=== PATIENT | male | born 1965 | race African-American/Black ===

== ENCOUNTER 2020-02-07 07:39 | Emergency (ER) | payer OTHER ==
[~2020-02-07] VITALS: Ht 167.7 cm; Wt 80.7 kg
[~2020-02-07 07:39] MED LIST: AMOX500C2 PO; HYDR-1231 PO; HYDR-3454 PO; ONDAN4ODT PO; PENI250T4 PO
[2020-02-07 08:30] LABS: BILIRUBIN,URINE NEGATIVE (NEGATIVE); CLARITY,URINE CLEAR; COLOR,URINE YELLOW; GLUCOSE, URINE (UA) NEGATIVE (NEGATIVE); KETONES,URINE NEGATIVE (NEGATIVE); LEUKOCYTE ESTERASE ,URINE TRACE (NEGATIVE); NITRITE,URINE NEGATIVE (NEGATIVE); PH,URINE 6.5 (5-9); PROTEIN,URINE NEGATIVE (NEGATIVE)
[2020-02-07 08:38] LABS: BACTERIA,URINE NEGATIVE /HPF; SQUAMOUS EPITHELIAL CELL,UR 0-2 /HPF; WBC,URINE 0-2 /HPF
[2020-02-07] MEDS ORDERED: ONDANSETRON 4 MG (ZOFRAN) ORAL DISSOLVE TAB SL ONE (08:45)
[2020-02-07] MEDS ORDERED: LIDOCAINE 2% VISCOUS 15 ML UDC PO ONE (08:45)
[2020-02-07] MEDS ORDERED: ANTACID SUSP 30 ML UDC (MYLANTA) PO ONE (08:45)
[2020-02-07] MEDS ORDERED: FAMOTIDINE 20MG/2ML IV (PEPCID) IVP ONE (10:30)
[2020-02-07 10:49] LABS: BASOPHILS # (AUTO) 0.1 10^3/uL (0.0-0.1); BASOPHILS % (AUTO) 1 % (0-10); EOSINOPHILS # (AUTO) 0.3 10^3/uL (0.0-0.3); EOSINOPHILS % (AUTO) 2 % (0-10); HEMATOCRIT 46 % (40-54); HEMOGLOBIN 15.8 G/DL (13.3-17.7); LYMPHOCYTES # (AUTO) 3.9 X 10^3 (1.0-4.0); LYMPHOCYTES % (AUTO) 29 % (12-44); MEAN CORPUSCULAR HEMOGLOBIN 28 PG (25-34); MEAN CORPUSCULAR HGB CONC 34 G/DL (32-36); MEAN CORPUSCULAR VOLUME 83 FL (80-99); MEAN PLATELET VOLUME 9.7 FL (7.4-10.4); MONOCYTES # (AUTO) 1.2 X 10^3 (0.0-1.0); MONOCYTES % (AUTO) 9 % (0-12); NEUTROPHILS % (AUTO) 60 % (42-75); PLATELET COUNT 295 10^3/uL (130-400); RED CELL DISTRIBUTION WIDTH 15.6 % (10.0-14.5); WHITE BLOOD COUNT 13.5 10^3/uL (4.3-11.0)
[2020-02-07 11:05] LABS: ALBUMIN 3.9 GM/DL (3.2-4.5); CHLORIDE 106 MMOL/L (98-107); POTASSIUM 4.5 MMOL/L (3.6-5.0); SODIUM 138 MMOL/L (135-145)
[2020-02-07 11:06] LABS: CALCIUM 8.9 MG/DL (8.5-10.1)
[2020-02-07 11:07] LABS: GLUCOSE 103 MG/DL (70-105)
[2020-02-07 11:08] LABS: TOTAL PROTEIN 8.3 GM/DL (6.4-8.2)
[2020-02-07 11:09] LABS: BILIRUBIN,TOTAL 0.4 MG/DL (0.1-1.0); CARBON DIOXIDE 22 MMOL/L (21-32)
[2020-02-07 11:11] LABS: ALKALINE PHOSPHATASE 97 U/L (40-136); CREATININE SERUM 0.84 MG/DL (0.60-1.30); GFR ESTIMATED > 60
[2020-02-07 11:12] LABS: BUN/CREATININE RATIO 15
[2020-02-07 11:14] LABS: ALANINE AMINOTRANSFERASE 18 U/L (0-55); LIPASE 34 U/L (8-78)
--- NOTE | 2020-02-07 12:25 | Diagnostic Imaging Report ---
PROCEDURE: US Gallbladder. TECHNIQUE: Multiple real-time grayscale images were obtained over the right upper quadrant in various projections. INDICATION: Abdominal pain. FINDINGS: The liver parenchyma is homogeneous. No masses. Long axis of 15 cm. The bile ducts are not dilated. The common duct is 3 mm. Gallbladder is nondistended. No gallstones or wall thickening. No pericholecystic fluid. Pancreas is obscured by midline bowel gas. Aorta and vena cava appear normal. The Doppler sampling shows normal flow in the portal vein. The right kidney measures 10.8 x 4 x 5 cm and appears normal. There is no ascites. IMPRESSION: Normal right upper quadrant ultrasound. The pancreas was not well evaluated. Dictated by: Dictated on workstation # [id number]
--- NOTE | 2020-02-07 12:50 | ED Abdominal Pain ---
General Chief Complaint: Abdominal/GI Problems Stated Complaint: ABD PAIN Nursing Triage Note: PT AMB TO RM 8 WITH COMPLAINT OF UPPER ABD PAIN FOR 2-3 MONTHS. STATES PAIN WORSENED OVER THE LAST 2-3 DAYS. Sepsis Screen: No Definite Risk Source of Information: Patient Exam Limitations: No Limitations History of Present Illness Date Seen by Provider: February 07, 2020 Time Seen by Provider: 08:09 Initial Comments This 54-year-old gentleman presents to the emergency room with complaints of epigastric pain for the past 2-3 months intensifying more severely over the last couple days. He sometimes has pain very quickly after eating. Pepcid does briefly help. He denies vomiting, diarrhea, or fever. He rarely drinks alcohol but does smoke. He has never had EGD. He does not have a primary care provid er. Allergies and Home Medications Allergies Coded Allergies: No Known Drug Allergies (Unverified , 08/28/12) Home Medications Amoxicillin 500 Mg Capsule, 1 EACH PO TID Prescribed by: JODY MILLS on 08/22/142043 Hydrocodone Bit/Acetaminophen 1 Tab Tablet, 1 TAB PO Q6H PRN for PAIN Prescribed by: JODY MILLS on 08/22/142043 Patient Home Medication List Home Medication List Reviewed: Yes Review of Systems Review of Systems Constitutional: no symptoms reported EENTM: No Symptoms Reported Respiratory: No Symptoms Reported Cardiovascular: No Symptoms Reported Gastrointestinal: See HPI Genitourinary: No Symptoms Reported Musculoskeletal: no symptoms reported Skin: no symptoms reported Psychiatric/Neurological: No Symptoms Reported Endocrine: No Symptoms Reported Hematologic/Lymphatic: No Symptoms Reported Past Nwfsztt-Atmdho-Egmvbk Hx Past Med/Social Hx: Reviewed Nursing Past Med/Soc Hx Patient Social History Alcohol Use: Rarely Uses Recreational Drug Use: No Smoking Status: Current Everyday Smoker Type Used: Cigarettes Recent Foreign Travel: No Contact w/Someone Who Travel: No Recent Infectious Disease Expo: No Immunizations Up To Date Date of Pneumonia Vaccine: Jun 18, 2011 Date of Influenza Vaccine: Jun 14, 2014 Past Medical History Surgeries: Yes (SKIN GRAFT) Respiratory: No Cardiac: No Neurological: No Genitourinary: No Gastrointestinal: No Musculoskeletal: No Endocrine: No HEENT: No Cancer: No Psychosocial: No Integumentary: No Physical Exam Vital Signs Vital Signs - First Documented 02/07/20 08:20 Temp 36.7 Pulse 78 Resp 20 B/P (MAP) 149/90 (109) Pulse Ox 98 O2 Delivery Room Air Capillary Refill : Less Than 3 Seconds Height/Weight/BMI Height: 5'6" Weight: 185lbs. oz. 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, no motor/sensory deficits, alert, normal mood/affect, oriented x 3 Skin: normal color, warm/dry Progress/Results/Core Measures Results/Orders Lab Results Laboratory Tests Test 02/07/20 08:20 02/07/20 10:35 Range/Units Urine Color YELLOW Urine Clarity CLEAR Urine pH 6.5 5-9 Urine Specific [place] 1.025 H 1.016-1.022 Urine Protein NEGATIVE NEGATIVE Urine Glucose (UA) NEGATIVE NEGATIVE Urine Ketones NEGATIVE NEGATIVE Urine Nitrite NEGATIVE NEGATIVE Urine Bilirubin NEGATIVE NEGATIVE Urine Urobilinogen 1.0 < = 1.0 MG/DL Urine Leukocyte Esterase TRACE H NEGATIVE Urine RBC (Auto) NEGATIVE NEGATIVE Urine RBC NONE /HPF Urine WBC 0-2 /HPF Urine Squamous Epithelial Cells 0-2 /HPF Urine Crystals NONE /LPF Urine Bacteria NEGATIVE /HPF Urine Casts NONE /LPF Urine Mucus NEGATIVE /LPF Urine Culture Indicated NO White Blood Count 13.5 H 4.3-11.0 10^3/uL Red Blood Count 5.57 4.35-5.85 10^6/uL Hemoglobin 15.8 13.3-17.7 G/DL Hematocrit 46 40-54 % Mean Corpuscular Volume 83 80-99 FL Mean Corpuscular Hemoglobin 28 25-34 PG Mean Corpuscular Hemoglobin Concent 34 32-36 G/DL Red Cell Distribution Width 15.6 H 10.0-14.5 % Platelet Count 295 130-400 10^3/uL Mean Platelet Volume 9.7 7.4-10.4 FL Neutrophils (%) (Auto) 60 42-75 % Lymphocytes (%) (Auto) 29 12-44 % Monocytes (%) (Auto) 9 0-12 % Eosinophils (%) (Auto) 2 0-10 % Basophils (%) (Auto) 1 0-10 % Neutrophils # (Auto) 8.0 H 1.8-7.8 X 10^3 Lymphocytes # (Auto) 3.9 1.0-4.0 X 10^3 Monocytes # (Auto) 1.2 H 0.0-1.0 X 10^3 Eosinophils # (Auto) 0.3 0.0-0.3 10^3/uL Basophils # (Auto) 0.1 0.0-0.1 10^3/uL Sodium Level 138 135-145 MMOL/L Potassium Level 4.5 3.6-5.0 MMOL/L Chloride Level 106 98-107 MMOL/L Carbon Dioxide Level 22 21-32 MMOL/L Anion Gap 10 5-14 MMOL/L Blood Urea Nitrogen 13 7-18 MG/DL Creatinine 0.84 0.60-1.30 MG/DL Estimat Glomerular Filtration Rate > 60 BUN/Creatinine Ratio 15 Glucose Level 103 70-105 MG/DL Calcium Level 8.9 8.5-10.1 MG/DL Corrected Calcium 9.0 8.5-10.1 MG/DL Total Bilirubin 0.4 0.1-1.0 MG/DL Aspartate Amino Transf (AST/SGOT) 18 5-34 U/L Alanine Aminotransferase (ALT/SGPT) 18 0-55 U/L Alkaline Phosphatase 97 40-136 U/L C-Reactive Protein High Sensitivity 0.42 0.00-0.50 MG/DL Total Protein 8.3 H 6.4-8.2 GM/DL Albumin 3.9 3.2-4.5 GM/DL Lipase 34 8-78 U/L My Orders Orders - PARUL GARCIA MD Ua Culture If Indicated (02/07/20 08:09) Ondansetron Oral Dissolve Tab (Zofran (02/07/20 08:45) Lidocaine 2% Viscous 15 Ml (Xylocaine Vi (02/07/20 08:45) Antacid Suspension (Mylanta Suspension (02/07/20 08:45) Ed Iv/Invasive Line Start (02/07/20 10:22) Cbc With Automated Diff (02/07/20 10:22) Comprehensive Metabolic Panel (02/07/20 10:22) Hs C Reactive Protein (02/07/20 10:22) Lipase (02/07/20 10:22) Famotidine Injection (Pepcid Injection) (02/07/20 10:30) Us Gallbladder 14686 (02/07/20 10:30) Medications Given in ED Vital Signs/I&O 02/07/20 02/07/20 08:20 13:00 Temp 36.7 36.7 Pulse 78 76 Resp 20 17 B/P (MAP) 149/90 (109) 135/88 (109) Pulse Ox 98 98 O2 Delivery Room Air Room Air Blood Pressure Mean: 109 Progress Progress Note : Progress Note Patient was treated with Zofran and GI cocktail. This actually induce more pain. Further workup revealed minimal leukocytosis. Gallbladder ultrasound was obtained and was unremarkable. Patient was given IV Pepcid which did seem to help some. See discharge instructions. Diagnostic Imaging Diagonstic Imaging: Ultrasound Plain Films/CT/US/NM/MRI: abdomen Comments NAME: MIKE ASHRAF MED REC#: [id number] PT STATUS: DEP ER : 1965 PHYSICIAN: PARUL GARCIA MD ADMIT DATE: 02/07/20/ER Signed Date of Exam:02/07/20 US GALLBLADDER [id number] PROCEDURE: US Gallbladder. TECHNIQUE: Multiple real-time grayscale images were obtained over the right upper quadrant in various projections. INDICATION: Abdominal pain. FINDINGS: The liver parenchyma is homogeneous. No masses. Long axis of 15 cm. The bile ducts are not dilated. The common duct is 3 mm. Gallbladder is nondistended. No gallstones or wall thickening. No pericholecystic fluid. Pancreas is obscured by midline bowel gas. Aorta and vena cava appear normal. The Doppler sampling shows normal flow in the portal vein. The right kidney measures 10.8 x 4 x 5 cm and appears normal. There is no ascites. IMPRESSION: Normal right upper quadrant ultrasound. The pancreas was not well evaluated. Dictated by: Dictated on workstation # [id number] Dict: 02/07/20 1216 Trans: 02/07/20 1615 [facility] [id number] Interpreted by: JACQUI HOROWITZ MD Electronically signed by: JACQUI HOROWITZ MD 02/07/20 1615 Reviewed: Reviewed by Me Departure Impression Primary Impression: Epigastric pain Disposition: HOME, SELF-CARE Condition: Improved Departure-Patient Inst. Decision time for Depature: 12:47 Referrals: NO,LOCAL PHYSICIAN (PCP/Family) Primary Care Physician Patient Instructions: Acid Reflux and GERD in Adults (DC), Acute Abdomen (Belly Pain), Adult (DC) Add. Discharge Instructions: Take Pepcid (or generic famotidine) and Prilosec (or generic omeprazole) twice daily for the next month. Do not stop even if you're feeling better. Both of these medications are 20 mg twice daily. Establish with a primary care provider soon as possible. Avoid the following: Eating large meals, eating close to bedtime, caffeine, carbonation, chocolate, citrus fruits and juices, tomato products, spicy foods, mints, tobacco products including smoking, alcohol, NSAID medications such as ibuprofen or naproxen, fatty or greasy foods, or anything else you know irritates your stomach. Elevating the head of your bed at night may be helpful. Return to care if you have worsening symptoms despite following these measures. If you do not have significant improvement within 2 weeks, follow-up with a primary care provider to arrange endoscopy. All discharge instructions reviewed with patient and/or family. Voiced understanding. Work/School Note: Work Release Form Date Seen in the Emergency Department: February 07, 2020 Return to Work: February 08, 2020 Restrictions: No Restrictions PARUL GARCIA MD February 07, 2020 12:50
[2020-02-07 13:00] VITALS: BP 135/88
== END 2020-02-07 13:00 | disposition home or self-care (01) ==
LOC: EDUNIT# 07:39 → ER 07:41
DX: R10.13 Epigastric pain (principal); F17.210 Nicotine dependence, cigarettes, uncomplicated
CPT/HCPCS: 36415; 76705; 80053; 81000; 83690; 85025; 86141; 96374

== ENCOUNTER 2022-04-17 10:49 | Inpatient (IN) | payer SELFPAY ==
[~2022-04-17] VITALS: Ht 167.7 cm; Wt 77.0 kg
[2022-04-17] MEDS ORDERED: NS IV 1000 ML 1,000 ML IV STA (11:10)
--- NOTE | 2022-04-17 11:14 | ED General ---
General Chief Complaint: General Problems/Pain Stated Complaint: WEAKNESS,DOVER,ABD PAIN, N/V Nursing Triage Note: PT AMB TO RM 10 WITH C/O FEELING DEHYDRATED X2 DAYS, DOVER AND WEAKNESS. 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 Patient states he works in a building that is extremely hot. Patient states over the past 2 days he has not been drinking as much water. Started having some abdominal discomfort with episode of vomiting yesterday. Woke up this morning with headache with weakness and fatigue. Reports cramping in his legs. Reports some upper abdominal discomfort this morning but that has improved. Denies taking medication at home. Has been drinking Gatorade but this has not helped with any of his symptoms. Denies fever, sore throat, visual changes, ear pain, diarrhea, chest pain, cough or shortness of breath. No known cardiac history, history of COPD or asthma. (MARILU LEON) Allergies and Home Medications Allergies Coded Allergies: Penicillins (Verified Allergy, Unknown, 02/08/20) Patient Home Medication List Home Medication List Reviewed: Yes (MARILU LEON) Ibuprofen (Ibuprofen) 200 Mg Tablet, 400 MG PO Q6H PRN for PAIN-MILD (1-4), (Reported) Entered as Reported by: RICHY GREEN on 04/18/22 1021 Last Action: Reviewed Discontinued Medications Amoxicillin (Amoxicillin) 500 Mg Capsule, 1 EACH PO TID Discontinued Reason: No Longer Taking Prescribed by: JODY MILLS on 08/22/142043 Last Action: Discontinued Hydrocodone Bit/Acetaminophen (Hydrocodone-Apap 5-325 Tablet) 1 Tab Tablet, 1 TAB PO Q6H PRN for PAIN Discontinued Reason: No Longer Taking Prescribed by: JODY MILLS on 08/22/142043 Last Action: Discontinued Review of Systems Review of Systems Constitutional: No chills, No diaphoresis; malaise, weakness EENTM: No blurred vision, No double vision Respiratory: No cough, No dyspnea on exertion Cardiovascular: No chest pain, No edema Gastrointestinal: abdominal pain, nausea, vomiting Genitourinary: No decreased output, No discharge Musculoskeletal: No back pain, No joint pain; muscle stiffness, muscle cramps Psychiatric/Neurological: Headache (MARILU LEON) All Other Systems Reviewed Negative Unless Noted: Yes (MARILU LEON) Past Gtznhxv-Ruqeus-Fkpjdj Hx Patient Social History Tobacco Use?: Yes Tobacco type used: Cigarettes Use of E-Cig and/or Vaping dev: No Substance use?: No Alcohol Use?: No Pt feels they are or have been: No (MARILU LEON) Immunizations Up To Date Influenza Vaccine Up-to-Date: No; Not Current First/Initial COVID19 Vaccinat: 2020 COVID19 Vaccine Rivet Flunky: UNKNOWN (MARILU LEON) Past Medical History Surgery/Hospitalization HX: SKIN GRAFT TO R LEG Surgeries: Yes (SKIN GRAFT) Respiratory: No Cardiac: No Neurological: No Genitourinary: No Gastrointestinal: No Musculoskeletal: No Endocrine: No HEENT: No Cancer: No Psychosocial: No Integumentary: No (MARILU LEON) Physical Exam Vital Signs Vital Signs - First Documented 04/17/22 10:57 Temp 36.1 Pulse 106 Resp 18 B/P (MAP) 111/79 (90) (CLIFF KLEIN MD) Vital Signs Capillary Refill : (MARILU LEON) Height, Weight, BMI Height: 5'6" Weight: 185lbs. oz. 83.937594so; 28.00 BMI Method:Stated General Appearance: No Apparent Distress, WD/WN Eyes: Bilateral Eye Normal Inspection, Bilateral Eye PERRL, Bilateral Eye EOMI HEENT: PERRL/EOMI, TMs Normal, Normal ENT Inspection, Pharynx Normal Neck: Full Range of Motion, Normal Inspection, Non Tender, Supple Respiratory: Chest Non Tender, Lungs Clear, Normal Breath Sounds, No Accessory Muscle Use, No Respiratory Distress Cardiovascular: No Edema, No Gallop, No JVD, Tachycardia Gastrointestinal: Normal Bowel Sounds, No Organomegaly, No Pulsatile Mass, Non Tender, Soft Back: Normal Inspection, No CVA Tenderness, No Vertebral Tenderness Extremity: Normal Capillary Refill, Normal Inspection, Normal Range of Motion, Non Tender, No Calf Tenderness Neurologic/Psychiatric: Alert, Oriented x3, No Motor/Sensory Deficits, Normal Mood/Affect Skin: Normal Color, Warm/Dry (MARILU LEON) Progress/Results/Core Measures Suspected Sepsis SIRS Temperature: Pulse: 106 Respiratory Rate: 18 Laboratory Tests 04/17/22 11:05: White Blood Count 18.1H Blood Pressure 111 /79 Mean: 90 Laboratory Tests 04/17/22 11:05: Creatinine 3.64H, Platelet Count 332, Total Bilirubin 0.8 (MARILU LEON) Results/Orders Lab Results Laboratory Tests Test 04/17/22 11:02 04/17/22 11:05 04/17/22 11:21 Range/Units Influenza Type A (RT-PCR) Not Detected Not Detecte Influenza Type B (RT-PCR) Not Detected Not Detecte SARS-CoV-2 RNA (RT-PCR) Not Detected Not Detecte White Blood Count 18.1 H 4.3-11.0 10^3/uL Red Blood Count 6.05 H 4.30-5.52 10^6/uL Hemoglobin 16.8 13.3-17.7 g/dL Hematocrit 49 40-54 % Mean Corpuscular Volume 81 80-99 fL Mean Corpuscular Hemoglobin 28 25-34 pg Mean Corpuscular Hemoglobin Concent 34 32-36 g/dL Red Cell Distribution Width 15.9 H 10.0-14.5 % Platelet Count 332 130-400 10^3/uL Mean Platelet Volume 9.4 9.0-12.2 fL Immature Granulocyte % (Auto) 1 % Neutrophils (%) (Auto) 59 42-75 % Lymphocytes (%) (Auto) 30 12-44 % Monocytes (%) (Auto) 9 0-12 % Eosinophils (%) (Auto) 0 0-10 % Basophils (%) (Auto) 1 0-10 % Neutrophils # (Auto) 10.7 H 1.8-7.8 10^3/uL Lymphocytes # (Auto) 5.4 H 1.0-4.0 10^3/uL Monocytes # (Auto) 1.7 H 0.0-1.0 10^3/uL Eosinophils # (Auto) 0.1 0.0-0.3 10^3/uL Basophils # (Auto) 0.1 0.0-0.1 10^3/uL Immature Granulocyte # (Auto) 0.1 0.0-0.1 10^3/uL Neutrophils % (Manual) 61 % Lymphocytes % (Manual) 28 % Monocytes % (Manual) 8 % Eosinophils % (Manual) 1 % Metamyelocytes % 1 % Band Neutrophils 1 % Blood Morphology Comment NORMAL Sodium Level 138 135-145 MMOL/L Potassium Level 3.8 3.6-5.0 MMOL/L Chloride Level 102 98-107 MMOL/L Carbon Dioxide Level 21 21-32 MMOL/L Anion Gap 15 H 5-14 MMOL/L Blood Urea Nitrogen 40 H 7-18 MG/DL Creatinine 3.64 H 0.60-1.30 MG/DL Estimat Glomerular Filtration Rate 18 BUN/Creatinine Ratio 11 Glucose Level 120 H 70-105 MG/DL Calcium Level 10.3 H 8.5-10.1 MG/DL Corrected Calcium 8.5-10.1 MG/DL Magnesium Level 2.4 1.6-2.4 MG/DL Total Bilirubin 0.8 0.1-1.0 MG/DL Aspartate Amino Transf (AST/SGOT) 72 H 5-34 U/L Alanine Aminotransferase (ALT/SGPT) 24 0-55 U/L Alkaline Phosphatase 110 40-136 U/L Total Creatine Kinase 4038 H 30-200 U/L Troponin I 1.162 *H <0.028 NG/ML B-Type Natriuretic Peptide 33.0 <100.0 PG/ML Total Protein 9.8 H 6.4-8.2 GM/DL Albumin 4.6 H 3.2-4.5 GM/DL Lipase 20 8-78 U/L Urine Color DARK YELLOW Urine Clarity CLEAR Urine pH 5.0 5-9 Urine Specific [place] >=1.030 1.016-1.022 Urine Protein 1+ H NEGATIVE Urine Glucose (UA) NEGATIVE NEGATIVE Urine Ketones NEGATIVE NEGATIVE Urine Nitrite NEGATIVE NEGATIVE Urine Bilirubin 1+ H NEGATIVE Urine Urobilinogen 0.2 < = 1.0 MG/DL Urine Leukocyte Esterase TRACE H NEGATIVE Urine RBC (Auto) NEGATIVE NEGATIVE Urine RBC NONE /HPF Urine WBC 5-10 H /HPF Urine Squamous Epithelial Cells NONE /HPF Urine Crystals PRESENT H /LPF Urine Calcium Oxalate Crystals FEW H /LPF Urine Bacteria FEW H /HPF Urine Casts PRESENT /LPF Urine Hyaline Casts 5-10 H /LPF Urine Mucus NEGATIVE /LPF Urine Culture Indicated YES (CLIFF KLEIN MD) Micro Results Microbiology 04/17/22 Urine Culture - Final, Complete NO GROWTH (CLIFF KLEIN MD) Vital Signs/I&O 04/17/22 10:57 Temp 36.1 Pulse 106 Resp 18 B/P (MAP) 111/79 (90) (CLIFF KLEIN MD) Vital Signs/I&O Capillary Refill : (MARILU LEON) Blood Pressure Mean: 90 ECG Comment Sinus rhythm, left atrial enlargement, moderate T wave abnormality in the anterior lateral leads. 94 bpm, QRS duration 73 MS, QTc 372 MS (MARILU LEON) Departure Communication (Admissions) Time/Spoke to Admitting Phy: 12:31 Patient was discussed with Dr. Daley who accepts patient. Patient was discussed with Dr. Gardner to recommend bolus heparin and started on heparin drip. (MARILU LEON) Communication (PCP) Patient presents ED with weakness fatigue, leg cramping and some upper abdominal discomfort with headache. He states he has a history of acid reflux and this abdominal discomfort is improved with omeprazole. No current chest pain here. He was slightly tachycardic. Lab work showed elevated white blood count 18. Acute kidney injury with a creatinine of over 3. Rhabdo my lysis with CK of over 4000. Had an elevated troponin 1.162. Patient was started on a liter of fluid initially on arrival. Was given a second liter of fluid. Patient was given 324 of aspirin. No known history of coronary artery disease, CHF. Normal BNP. He is not have any chest pain, cough or shortness of breath. EKG did note some T wave abnormality in the anterior lateral leads. Discussed patient with Dr. Gardner who recommends heparin bolus and started on a heparin drip. Admitted to the ICU after discussing patient with Dr. Daley. No evidence suggesting infection at this time. Chest x-ray was negative for pneumonia. Urinalysis did note some leukocytes and white blood cells but not really strong evidence of UTI and he denies of any urinary symptoms. Antibiotics was held. Patient appears to have a NSTEMI which could be secondary to the rhabdo versus acute kidney injury. Further evaluation will be needed with cardiology. COVID influenza was negative (MARILU LEON) Impression Primary Impression: IRENA (acute kidney injury) Additional Impressions: NSTEMI (non-ST elevated myocardial infarction) Rhabdomyolysis Disposition: ADMITTED INPATIENT Condition: Unchanged Admissions Decision to Admit Reason: Admit from ER (General) Decision to Admit/Date: Apr 17, 2022 Time/Decision to Admit Time: 12:31 (MARILU LEON) Departure-Patient Inst. Referrals: NO,LOCAL PHYSICIAN (PCP/Family) Primary Care Physician PHYSICIAN ATTESTATION NOTE: I was present in the ER while REPORTS DEVELOPER / PA saw the patient, but I was not involved in the care, exam, or management of the patient. (CLIFF KLEIN MD) MARILU LEON Apr 17, 2022 11:14 CLIFF KLEIN MD Apr 19, 2022 07:19
[2022-04-17 11:16] LABS: BASOPHILS # (AUTO) 0.1 10^3/uL (0.0-0.1); BASOPHILS % (AUTO) 1 % (0-10); EOSINOPHILS # (AUTO) 0.1 10^3/uL (0.0-0.3); EOSINOPHILS % (AUTO) 0 % (0-10); HEMATOCRIT 49 % (40-54); HEMOGLOBIN 16.8 g/dL (13.3-17.7); LYMPHOCYTES # (AUTO) 5.4 10^3/uL (1.0-4.0); LYMPHOCYTES % (AUTO) 30 % (12-44); MEAN CORPUSCULAR HEMOGLOBIN 28 pg (25-34); MEAN CORPUSCULAR HGB CONC 34 g/dL (32-36); MEAN CORPUSCULAR VOLUME 81 fL (80-99); MEAN PLATELET VOLUME 9.4 fL (9.0-12.2); MONOCYTES # (AUTO) 1.7 10^3/uL (0.0-1.0); MONOCYTES % (AUTO) 9 % (0-12); NEUTROPHILS # (AUTO) 10.7 10^3/uL (1.8-7.8); NEUTROPHILS % (AUTO) 59 % (42-75); PLATELET COUNT 332 10^3/uL (130-400); WHITE BLOOD COUNT 18.1 10^3/uL (4.3-11.0)
[2022-04-17 11:25] LABS: ALBUMIN 4.6 GM/DL (3.2-4.5); CHLORIDE 102 MMOL/L (98-107); POTASSIUM 3.8 MMOL/L (3.6-5.0); SODIUM 138 MMOL/L (135-145)
[2022-04-17 11:27] LABS: CALCIUM 10.3 MG/DL (8.5-10.1)
[2022-04-17 11:28] LABS: GLUCOSE 120 MG/DL (70-105); TOTAL PROTEIN 9.8 GM/DL (6.4-8.2)
[2022-04-17 11:29] LABS: CARBON DIOXIDE 21 MMOL/L (21-32)
[2022-04-17 11:30] LABS: BILIRUBIN,TOTAL 0.8 MG/DL (0.1-1.0)
[2022-04-17 11:31] LABS: ALKALINE PHOSPHATASE 110 U/L (40-136); CREATININE SERUM 3.64 MG/DL (0.60-1.30); GFR ESTIMATED 18
[2022-04-17 11:32] LABS: BUN/CREATININE RATIO 11
[2022-04-17 11:34] LABS: ALANINE AMINOTRANSFERASE 24 U/L (0-55); MAGNESIUM 2.4 MG/DL (1.6-2.4)
[2022-04-17 11:35] LABS: LIPASE 20 U/L (8-78)
[2022-04-17 11:35] LABS: CLARITY,URINE CLEAR; COLOR,URINE DARK YELLOW; GLUCOSE, URINE (UA) NEGATIVE (NEGATIVE); KETONES,URINE NEGATIVE (NEGATIVE); LEUKOCYTE ESTERASE ,URINE TRACE (NEGATIVE); NITRITE,URINE NEGATIVE (NEGATIVE); PROTEIN,URINE 1+ (NEGATIVE)
[2022-04-17 11:36] LABS: CREATINE KINASE 4038 U/L (30-200)
[2022-04-17 12:06] LABS: BACTERIA,URINE FEW /HPF; BILIRUBIN,URINE 1+ (NEGATIVE); CALCIUM OXALATE CRYSTALS,UR FEW /LPF
[2022-04-17] MEDS ORDERED: NS IV 1000 ML 1,000 ML ONE (12:11)
[2022-04-17 12:13] LABS: BAND NEUTROPHILS 1 %; EOSINOPHILS % (MANUAL) 1 %; LYMPHOCYTES % (MANUAL) 28 %; METAMYELOCYTES % 1 %; MONOCYTES % (MANUAL) 8 %; NEUTROPHILS % (MANUAL) 61 %
[2022-04-17 12:14] LABS: RBC MORPH NORMAL
[2022-04-17] MEDS ORDERED: ASPIRIN 81 MG CHEW (CHILDREN'S ASA) PO ONE (12:15)
[2022-04-17] MEDS ORDERED: HEParin 1000 UNIT/ML (10ML VIAL) FOR BOLUS IV STA (12:24)
--- NOTE | 2022-04-17 12:34 | Diagnostic Imaging Report ---
INDICATION: Chest pain. TIME OF EXAM: 12:11 PM. COMPARISON: No prior studies are available for comparison. FINDINGS: The heart size is normal. The pulmonary vascularity is unremarkable. The lungs are clear. No infiltrate, effusion, or pneumothorax is detected. IMPRESSION: No acute cardiopulmonary process is detected. Dictated by: Dictated on workstation # [id number]
[2022-04-17 13:00] VITALS: BP 135/87
--- NOTE | 2022-04-17 13:24 | Tele-ICU Progress Note ---
Subjective Date Seen by a Provider: Apr 17, 2022 Time Seen by a Provider: 12:45 Subjective/Events-last exam This virtual visit was conducted using real time audio/video. Thank you for asking us to see this patient for Rhabdomyolisis, IRENA and NSTEMI. Recent events:Dehydrated, working in hot environment w poor PO intake PMH: GERD SH: smoking history: N FH: Non-contributory ROS: as in HPI. PE: VSS. HEENT: No obvious masses, adenopathy or JVD. Chest: clear to auscultation. CV: RRR S1 S2 No murmur or added sounds. Abd: Non-tender. Bowel sounds Y. : Unremarkable. Morin N. JAVA SPRING DEVELOPER/psychiatric: Grossly intact. No obvious focal findings. Extremities: edema. Capillary refill < 3 seconds. Skin: unremarkable. Results: Elevated BUN 40, Creat 3.64. BG 120, Ca 10.3, Trop 1.162, WCC 18.1. CXR: Clear. Available chart/ vitals / labs / images reviewed. Video assessment done using teleICU camera, rest of exam as per RN. A/P: Critical Care: critically ill patient. Cont. IVF, ASA, Heparin Discussed with RN Yissel. Asked RN to reach out to eICU if any questions or concerns later. Time spent with patient/coordination of care with other health professionals (mins): 35 Sepsis Event Evaluation Height, Weight, BMI Height: 5'6" Weight: 185lbs. oz. 83.769907xu; BMI Method:Stated Exam Exam Patient acknowledged, consented, and participated in this virtual visit which was conducted using real time audio/video Vital Signs Date Time Temp Pulse Resp B/P (MAP) Pulse Ox O2 Delivery O2 Flow Rate FiO2 04/17/22 13:00 36.1 85 18 135/87 04/17/22 10:57 36.1 106 18 111/79 (90) Height & Weight Height: 5'6" Weight: 185lbs. oz. 83.898342qp; BMI Method:Stated General Appearance: No Apparent Distress, WD/WN HEENT: PERRL/EOMI, TMs Normal, Normal ENT Inspection, Pharynx Normal Neck: Full Range of Motion, Normal Inspection, Non Tender, Supple Respiratory: Chest Non Tender, Lungs Clear, Normal Breath Sounds, No Accessory Muscle Use, No Respiratory Distress Cardiovascular: No Edema, No Gallop, No JVD, Tachycardia Extremity: Normal Capillary Refill, Normal Inspection, Normal Range of Motion, Non Tender, No Calf Tenderness Neurologic/Psychiatric: Alert, Oriented x3, No Motor/Sensory Deficits, Normal Mood/Affect Skin: Normal Color, Warm/Dry Results Lab Laboratory Tests 04/17/22 11:05 Assessment/Plan Assessment/Plan See free text Critical Care: Critically Ill Patient DARION VILLAFUERTE MD Apr 17, 2022 13:24
[2022-04-17] MEDS ORDERED: NS IV 500 ML 500 ML IV PRN (15:30)
[2022-04-17] MEDS ORDERED: MELATONIN 3 MG TABLET PO PRN (15:30)
[2022-04-17] MEDS ORDERED: CALCIUM CARBONATE 500 MG (TUMS) TAB.CHEW PO PRN (15:30)
[2022-04-17] MEDS ORDERED: diphenhydrAMINE 25 MG TAB (BENADRYL) PO PRN (15:30)
[2022-04-17] MEDS ORDERED: BISACODYL 10 MG SUPP (DULCOLAX) PR PRN (15:30)
[2022-04-17] MEDS ORDERED: diphenhydrAMINE 50 MG/ML INJ (BENADRYL) IVP PRN (15:30)
[2022-04-17] MEDS ORDERED: ANTACID SUSP 30 ML UDC (MYLANTA) PO PRN (15:30)
[2022-04-17] MEDS ORDERED: MILK OF MAGNESIA 400 MG/5 ML 30 ML UDC PO PRN (15:30)
[2022-04-17] MEDS ORDERED: HEParin DRIP 25000 UNIT/500ML 500 ML IV SCH (15:30)
[2022-04-17] MEDS ORDERED: polyethylene glycoL POWDER 17 GM (MIRALAX) PACK PO PRN (15:30)
[2022-04-17] MEDS ORDERED: ONDANSETRON 4 MG/2 ML (SDV) Z0FRAN IV PRN (15:30)
[2022-04-17] MEDS ORDERED: ACETAMINOPHEN 325 MG TABLET PO PRN (15:30)
[2022-04-17] MEDS ORDERED: ONDANSETRON 4 MG (ZOFRAN) ORAL DISSOLVE TAB PO PRN (15:30)
[2022-04-17] MEDS ORDERED: LACTULOSE SYRUP 10GM/15ML (ENULOSE) 30ML UDC PO PRN (15:30)
[2022-04-17] MEDS: NS IV 1000 ML 1,000 ML IV SCH (16:00)
[2022-04-17 16:26] LABS: INR 1.1 (0.8-1.4); PROTHROMBIN TIME PATIENT 14.7 SEC (12.2-14.7)
[2022-04-17] MEDS ORDERED: HEParin 1000 UNIT/ML (10ML VIAL) FOR BOLUS IV SCH (16:30)
[2022-04-17] MEDS ORDERED: HEParin 1000 UNIT/ML (10ML VIAL) FOR BOLUS IV ONE (16:45)
--- NOTE | 2022-04-17 16:45 | Consultation-Cardiology ---
HPI-Cardiology Cardiology Consultation: Date of Consultation 04/17/22 Date of Admission 04/17/22 Attending Physician Trinity,Local Physician Admitting Physician Admitting Physician: Leidy Daley MD Attending Physician: Leidy Daley MD Consulting Physician JAIME CHIRINOS JR, MD HPI: Time Seen by a Provider: 16:40 Chief Complaint: REASON FOR CONSULTATION: Abnormal troponin level I had the pleasure of seeing Lizette in the intensive care unit at [facility] in [place], [place] today. He does not routinely see doctors and cannot remember the last time he had a doctor's appointment. He does not take any regular prescription medications. 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 He tells me that the temperature inside the manufacturing facility will get up to 115 degrees. Everybody has been trying to drink plenty of fluids. However, yesterday was again another very hot day. He ate some popsicles at 1 point to try to cool down. Later in the day he drank some Gatorade but then vomited. Today when he went to work he was there for a few hours but then was just too hot and weak to work. He left work and came to the emergency room. He also felt a little bit lightheaded but denies any syncope. During his evaluation in the emergency room, he was found to be in acute renal failure and also had an elevated troponin level. As such, a cardiology consultation was requested. He denies any history of heart disease. He denies chest pain, dyspnea, paroxysmal nocturnal dyspnea, orthopnea, palpitations, or ankle edema. Certain portions of this document may have been dictated utilizing voice recognition technology. Inherent to this technology, typographical and grammatical errors may exist. As much as I am diligent to identify and correct these mistakes, some errors may remain in the document. Review of Systems-Cardiology Review of Systems Other comments Review of 10 organ systems is as per the history of present illness, otherwise negative. All Other Systems Reviewed Negative Unless Noted: Yes [id number] Hx Patient Social History Smoking Status: Current Everyday Smoker Have you traveled recently?: No Alcohol Use?: No Pt feels they are or have been: No Tobacco type used: Cigarettes Immunizations Up To Date Date of Pneumonia Vaccine: Jun 18, 2011 Date of Influenza Vaccine: Jun 14, 2014 Past Medical History PMH As described under Assessment. Family Medical History Family Medical History: His mother had a myocardial infarction but she was in her 70s. Both of his parents are still alive. Allergies and Home Medications Allergies Coded Allergies: Penicillins (Verified Allergy, Unknown, 02/08/20) Patient Home Medication List Home Medication List Reviewed: Yes Amoxicillin (Amoxicillin) 500 Mg Capsule, 1 EACH PO TID Prescribed by: JODY MILLS on 08/22/142043 Hydrocodone Bit/Acetaminophen (Hydrocodone-Apap 5-325 Tablet) 1 Tab Tablet, 1 TAB PO Q6H PRN for PAIN Prescribed by: JODY MILLS on 08/22/142043 Exam Vital Signs Vital Signs Date Time Temp Pulse Resp B/P (MAP) Pulse Ox O2 Delivery O2 Flow Rate FiO2 04/17/22 15:01 81 04/17/22 13:26 36.7 Room Air 04/17/22 13:00 18 135/87 Physical Exam General: Alert. No acute distress. Well nourished and appears stated age. Eye: Extraocular movements are intact. Conjunctivae are clear. There are no xanthelasma. HENT: Normocephalic. Atraumatic. Carotid pulsations 2/2 without bruits. Neck: Jugular venous pressure does not appear elevated. No thyromegaly appreciated. Respiratory: Lungs are clear to auscultation. Respirations are non-labored. Breath sounds are equal. Symmetrical chest wall expansion. Cardiovascular: Normal rate. Regular rhythm. No murmur. No gallop. Point of maximal impulse is not appear displaced. Good pulses equal in all extremities. No edema. Gastrointestinal: Soft. Normal bowel sounds. Skin: Skin turgor is normal. There is no pallor. Musculoskeletal: No kyphosis or scoliosis appreciated. Neurologic: Alert and oriented to person, place, time. Cranial nerves 3-12 appear grossly intact. The patient has good motor tone strength in the upper and lower extremities bilaterally. Psychiatric: Cooperative. Appropriate mood & affect. Labs Laboratory Tests Test 04/17/22 11:02 04/17/22 11:05 04/17/22 11:21 04/17/22 15:47 Range/Units Influenza Type A (RT-PCR) Not Detected Not Detecte Influenza Type B (RT-PCR) Not Detected Not Detecte SARS-CoV-2 RNA (RT-PCR) Not Detected Not Detecte White Blood Count 18.1 H 4.3-11.0 10^3/uL Red Blood Count 6.05 H 4.30-5.52 10^6/uL Hemoglobin 16.8 13.3-17.7 g/dL Hematocrit 49 40-54 % Mean Corpuscular Volume 81 80-99 fL Mean Corpuscular Hemoglobin 28 25-34 pg Mean Corpuscular Hemoglobin Concent 34 32-36 g/dL Red Cell Distribution Width 15.9 H 10.0-14.5 % Platelet Count 332 130-400 10^3/uL Mean Platelet Volume 9.4 9.0-12.2 fL Immature Granulocyte % (Auto) 1 % Neutrophils (%) (Auto) 59 42-75 % Lymphocytes (%) (Auto) 30 12-44 % Monocytes (%) (Auto) 9 0-12 % Eosinophils (%) (Auto) 0 0-10 % Basophils (%) (Auto) 1 0-10 % Neutrophils # (Auto) 10.7 H 1.8-7.8 10^3/uL Lymphocytes # (Auto) 5.4 H 1.0-4.0 10^3/uL Monocytes # (Auto) 1.7 H 0.0-1.0 10^3/uL Eosinophils # (Auto) 0.1 0.0-0.3 10^3/uL Basophils # (Auto) 0.1 0.0-0.1 10^3/uL Immature Granulocyte # (Auto) 0.1 0.0-0.1 10^3/uL Neutrophils % (Manual) 61 % Lymphocytes % (Manual) 28 % Monocytes % (Manual) 8 % Eosinophils % (Manual) 1 % Metamyelocytes % 1 % Band Neutrophils 1 % Blood Morphology Comment NORMAL Sodium Level 138 135-145 MMOL/L Potassium Level 3.8 3.6-5.0 MMOL/L Chloride Level 102 98-107 MMOL/L Carbon Dioxide Level 21 21-32 MMOL/L Anion Gap 15 H 5-14 MMOL/L Blood Urea Nitrogen 40 H 7-18 MG/DL Creatinine 3.64 H 0.60-1.30 MG/DL Estimat Glomerular Filtration Rate 18 BUN/Creatinine Ratio 11 Glucose Level 120 H 70-105 MG/DL Calcium Level 10.3 H 8.5-10.1 MG/DL Corrected Calcium 8.5-10.1 MG/DL Magnesium Level 2.4 1.6-2.4 MG/DL Total Bilirubin 0.8 0.1-1.0 MG/DL Aspartate Amino Transf (AST/SGOT) 72 H 5-34 U/L Alanine Aminotransferase (ALT/SGPT) 24 0-55 U/L Alkaline Phosphatase 110 40-136 U/L Total Creatine Kinase 4038 H 30-200 U/L Troponin I 1.162 *H <0.028 NG/ML B-Type Natriuretic Peptide 33.0 <100.0 PG/ML Total Protein 9.8 H 6.4-8.2 GM/DL Albumin 4.6 H 3.2-4.5 GM/DL Lipase 20 8-78 U/L Urine Color DARK YELLOW Urine Clarity CLEAR Urine pH 5.0 5-9 Urine Specific [place] >=1.030 1.016-1.022 Urine Protein 1+ H NEGATIVE Urine Glucose (UA) NEGATIVE NEGATIVE Urine Ketones NEGATIVE NEGATIVE Urine Nitrite NEGATIVE NEGATIVE Urine Bilirubin 1+ H NEGATIVE Urine Urobilinogen 0.2 < = 1.0 MG/DL Urine Leukocyte Esterase TRACE H NEGATIVE Urine RBC (Auto) NEGATIVE NEGATIVE Urine RBC NONE /HPF Urine WBC 5-10 H /HPF Urine Squamous Epithelial Cells NONE /HPF Urine Crystals PRESENT H /LPF Urine Calcium Oxalate Crystals FEW H /LPF Urine Bacteria FEW H /HPF Urine Casts PRESENT /LPF Urine Hyaline Casts 5-10 H /LPF Urine Mucus NEGATIVE /LPF Urine Culture Indicated YES Prothrombin Time 14.7 12.2-14.7 SEC INR Comment 1.1 0.8-1.4 Activated Partial Thromboplast Time 40 H 24-35 SEC ECG Impression ECG Comment Sinus rhythm with left atrial abnormality, possible old septal myocardial infarction, nonspecific anterolateral ST elevation and anterolateral T wave inversion, consider ischemia. No evidence of a STEMI. These findings could be consistent with left ventricular hypertrophy. Diagnosis/Problems Diagnosis/Problems (1) Troponin level elevated Assessment & Plan: He is not having any chest pain or other symptoms concerning for coronary ischemia. There is no evidence of a STEMI on his electrocardiogram. This may have been a type II non-ST elevation myocardial infarction related to probable heatstroke with rhabdomyolysis or noncardiac elevation of the troponin due to the acute kidney injury. He has been started on low strength aspirin and heparin infusion. We will obtain serial troponin levels and I will obtain an echocardiogram in the morning. Depending upon the results of the testing, I will decide whether or not he needs an ischemic evaluation. (2) Acute kidney injury Assessment & Plan: I suspect this may have been due to heatstroke. (3) Abnormal electrocardiogram Assessment & Plan: His electrocardiogram is abnormal but there is no evidence of a STEMI. I will obtain an echocardiogram in the morning. We will obtain serial troponin levels. (4) Cigarette smoker Assessment & Plan: He needs to quit smoking. He was counseled in this regard. JAIME CHIRINOS JR, MD Apr 17, 2022 16:45
[2022-04-17] MEDS: DOCUSATE SODIUM 100 MG (COLACE) CAP PO SCH (22:06)
[2022-04-17] MEDS: SENNOSIDES 8.6 MG (SENOKOT) TAB PO SCH (22:06)
--- NOTE | 2022-04-17 22:22 | History & Physical-Hospitalist ---
History of Present Illness HPI/Chief Complaint Rodger Alejandro is a 57 year old male with no known PMH who presented with weakness. 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 He has not been able to drink enough fluids. He has been having body aches. He denies chest pain. He denies shortness of breath. He had some nausea and vomiting. He does not take any medications regularly. Source: patient Exam Limitations: no limitations Date Seen 04/17/22 Time Seen by a Provider: 12:45 Attending Physician No,Local Physician PCP Admitting Physician: Leidy Lerner MD Attending Physician: eLidy Lerner MD Referring Physician Date of Admission Apr 17, 2022 at 12:33 Home Medications & Allergies Home Medications Reviewed patient Home Medication Reconciliation performed by pharmacy medication reconciliations hydroelectric systems technician and/or nursing. Patients Allergies have been reviewed. Allergies Allergies Coded Allergies Penicillins (Verified Allergy, Unknown, 02/08/20) Past Uofvrmf-[id number]-[id number] Hx Patient Social History Tobacco Use?: Yes Tobacco type used: Cigarettes Smoking Status: Current Everyday Smoker Use of E-Cig and/or Vaping dev: No Substance use?: No Alcohol Use?: No Pt feels they are or have been: No Immunizations Up To Date Date of Influenza Vaccine: Jun 14, 2014 First/Initial COVID19 Vaccinat: 2020 Tetanus Booster (TDap): Unknown Date of Pneumonia Vaccine: Jun 18, 2011 Current Status Advance Directives: No Communicates: Verbally Primary Language: Australian Preferred Spoken Language: Australian Family Medical History No Pertinent Family Hx Review of Systems Constitutional: weakness EENTM: no symptoms reported Respiratory: no symptoms reported Cardiovascular: no symptoms reported Gastrointestinal: no symptoms reported Genitourinary: no symptoms reported Physical Exam Physical Exam Vital Signs Vital Signs - First Documented 04/17/22 04/17/22 10:57 13:20 Temp 36.1 Pulse 106 Resp 18 B/P (MAP) 111/79 (90) Pulse Ox 100 O2 Delivery Room Air Capillary Refill : Less Than 3 Seconds Height, Weight, BMI Height: 5'6" Weight: 185lbs. oz. 83.301262wi; 27.37 BMI Method:Stated General Appearance: No Apparent Distress, WD/WN HEENT: PERRL/EOMI, Pharynx Normal Neck: Normal Inspection, Supple Respiratory: Lungs Clear, Normal Breath Sounds, No Respiratory Distress Cardiovascular: Regular Rate, Rhythm, No Edema, No Murmur Gastrointestinal: Normal Bowel Sounds, Non Tender, Soft Extremity: Normal Inspection, No Pedal Edema Neurologic/Psychiatric: Alert, Oriented x3, Normal Mood/Affect Skin: Normal Color, Warm/Dry Results Results/Procedures Labs Laboratory Tests 04/17/22 11:05 Patient resulted labs reviewed. Imaging: Reviewed Imaging Report Assessment/Plan Admission Diagnosis NSTEMI Admission Status: Inpatient Order (span 2 midnights) Reason for Inpatient Admission: Cardiology evaluation Assessment and Plan NSTEMI IRENA Rhabdomyolysis Cr elevated, unknown baseline CK elevated, trend Troponin elevated, trend IV fluids Cardiology consulted ASA Heparin gtt Tobacco abuse Nicotine patch Diagnosis/Problems Diagnosis/Problems (1) NSTEMI (non-ST elevated myocardial infarction) Status: Acute (2) IRENA (acute kidney injury) Status: Acute (3) Rhabdomyolysis Status: Acute Qualifiers: Rhabdomyolysis type: non-traumatic Qualified Codes: M62.82 - Rhabdomyolysis (4) Cigarette smoker Status: Chronic LEIDY LERNER MD Apr 17, 2022 22:22
[2022-04-17] MEDS ORDERED: NICOTINE 14 MG (NICODERM) PATCH TD ONE (22:30)
[2022-04-18] MEDS: NS IV 1000 ML 1,000 ML IV SCH ×2 (00:03→08:24)
[2022-04-18 03:37] LABS: HEMATOCRIT 40 % (40-54); HEMOGLOBIN 13.3 g/dL (13.3-17.7); MEAN CORPUSCULAR HEMOGLOBIN 28 pg (25-34); MEAN CORPUSCULAR HGB CONC 33 g/dL (32-36); MEAN CORPUSCULAR VOLUME 83 fL (80-99); MEAN PLATELET VOLUME 9.8 fL (9.0-12.2); PLATELET COUNT 264 10^3/uL (130-400); WHITE BLOOD COUNT 14.6 10^3/uL (4.3-11.0)
[2022-04-18 03:50] LABS: POTASSIUM 3.7 MMOL/L (3.6-5.0)
[2022-04-18 03:51] LABS: CALCIUM 8.4 MG/DL (8.5-10.1)
[2022-04-18 03:53] LABS: TRIGLYCERIDES 132 MG/DL (<150); VLDL CHOLESTEROL 26 MG/DL (5-40)
[2022-04-18 03:55] LABS: CREATININE SERUM 0.88 MG/DL (0.60-1.30)
[2022-04-18 03:58] LABS: CHOLESTEROL 160 MG/DL (< 200)
[2022-04-18 03:59] LABS: HDL CHOLESTEROL 24 MG/DL (40-60)
[2022-04-18] MEDS ORDERED: MAGNESIUM 1 GM/100 ML IVPB 100 ML IV SCH (06:00)
[2022-04-18] MEDS ORDERED: KCL 20 MEQ TAB (K-DUR) PO SCH (06:00)
[2022-04-18] MEDS ORDERED: POTASSIUM CL 10MEQ/50ML IVPB 50 ML IV SCH (06:00)
[2022-04-18] MEDS: SENNOSIDES 8.6 MG (SENOKOT) TAB PO SCH (08:23)
[2022-04-18] MEDS: DOCUSATE SODIUM 100 MG (COLACE) CAP PO SCH (08:23)
[2022-04-18] MEDS ORDERED: ASPIRIN 81 MG CHEW (CHILDREN'S ASA) PO SCH (09:00)
[2022-04-18] MEDS ORDERED: NICOTINE 14 MG (NICODERM) PATCH TD SCH (09:00)
--- NOTE | 2022-04-18 09:14 | Tele-ICU Progress Note ---
Subjective Date Seen by a Provider: Apr 18, 2022 Time Seen by a Provider: 09:10 Subjective/Events-last exam 57 yo M with Hx of cc weak, dehydrated, vomiting, admitted for rhabomoyolysis, troponin 1.162, then dropped, Given IVF pt feeling better, Cr/BUN 0.88/23 Just got echo, results pending, may go to CCL, no c/o CP or SOB On IV heparin for possible STEMI but not looking liekly to get recent PTT Sepsis Event Evaluation Height, Weight, BMI Height: 5'6" Weight: 185lbs. oz. 83.999253kc; 27.37 BMI Method:Stated Exam Exam Patient acknowledged, consented, and participated in this virtual visit which was conducted using real time audio/video Vital Signs Date Time Temp Pulse Resp B/P (MAP) Pulse Ox O2 Delivery O2 Flow Rate FiO2 04/18/22 08:00 Room Air 04/18/22 08:00 36.7 04/18/22 08:00 75 29 105/62 98 Room Air 04/18/22 07:00 75 04/18/22 07:00 64 17 96/65 96 Room Air 04/18/22 06:00 70 16 93/55 95 Room Air 04/18/22 05:00 69 16 111/65 96 Room Air 04/18/22 04:00 98 Room Air 04/18/22 04:00 61 15 108/68 93 Room Air 04/18/22 03:00 63 14 118/66 97 Room Air 04/18/22 02:00 68 15 94/56 96 Room Air 04/18/22 01:00 71 15 114/62 96 Room Air 04/18/22 01:00 71 04/18/22 00:00 72 16 107/64 97 Room Air 04/17/22 23:59 98 Room Air 04/17/22 23:00 75 19 98/53 97 Room Air 04/17/22 22:00 77 18 120/63 100 Room Air 04/17/22 21:00 36.6 04/17/22 21:00 78 17 111/65 96 Room Air 04/17/22 20:00 98 Room Air 04/17/22 20:00 80 16 108/65 96 Room Air 04/17/22 19:41 37.2 80 16 109/72 96 Room Air 04/17/22 19:00 80 15 113/75 96 Room Air 04/17/22 19:00 80 04/17/22 18:00 133/83 99 Room Air 04/17/22 17:00 127/96 100 Room Air 04/17/22 16:52 36.7 04/17/22 16:00 91 10 114/75 100 Room Air 04/17/22 16:00 100 Room Air 04/17/22 15:01 81 04/17/22 15:00 75 16 116/90 100 Room Air 04/17/22 14:00 80 117/77 100 Room Air 04/17/22 13:30 78 129/77 100 Room Air 04/17/22 13:26 36.7 Room Air 04/17/22 13:20 100 Room Air 04/17/22 13:00 36.1 85 18 135/87 04/17/22 10:57 36.1 106 18 111/79 (90) I & O 04/18/22 07:00 Intake Total 4400 ml Output Total 1200 ml Balance 3200 ml Height & Weight Height: 5'6" Weight: 185lbs. oz. 83.668901lg; 27.37 BMI Method:Stated General Appearance: No Apparent Distress, WD/WN HEENT: PERRL/EOMI, Pharynx Normal Neck: Normal Inspection, Supple Respiratory: Chest Non Tender, Lungs Clear, Normal Breath Sounds, No Respiratory Distress Cardiovascular: Regular Rate, Rhythm, No Edema, No Murmur Capillary Refill: Less Than 3 Seconds Gastrointestinal: normal bowel sounds, non tender Extremity: Normal Inspection, No Pedal Edema Neurologic/Psychiatric: Alert, Oriented x3, Normal Mood/Affect Skin: Normal Color, Warm/Dry Results Lab Laboratory Tests 04/17/22 11:05 04/18/22 03:26 Assessment/Plan Assessment/Plan If repeat troponin ok, will probably stop IV heparin May be able to go to floor Critical Care: Critically Ill Patient Time spent with patient (mins): 30 JUDI VANG MD Apr 18, 2022 09:14
[2022-04-18] MEDS ORDERED: IBUP-2473 PO (10:21)
--- NOTE | 2022-04-18 12:57 | Cardiology Progress Note ---
Progress Note-Cardiology Events since last exam Date Seen by Provider: Apr 18, 2022 Time Seen by Provider: 12:57 Events since last exam I am following him due to abnormal troponin level which has trended downwards. He feels like he is back to his baseline and wants to go home. He denies chest discomfort, dyspnea, palpitations, syncope, or ankle edema. Certain portions of this document may have been dictated utilizing voice recognition technology. Inherent to this technology, typographical and grammatical errors may exist. As much as I am diligent to identify and correct these mistakes, some errors may remain in the document. Vitals Last set of Vitals Signs Vital Signs 04/18/22 04/18/22 12:00 13:00 Temp 36.8 Pulse 85 Resp 15 B/P (MAP) 118/89 Pulse Ox 97 O2 Delivery Room Air Labs Labs Laboratory Tests 04/18/22 03:26 Exam Vital Signs Vital Signs Date Time Temp Pulse Resp B/P (MAP) Pulse Ox O2 Delivery O2 Flow Rate FiO2 04/18/22 13:55 04/18/22 13:00 85 15 97 Room Air 04/18/22 12:00 36.8 Physical Exam General: Alert. No acute distress. Eye: No xanthelasma. HENT: Normocephalic. Neck: Jugular venous pressure does not appear elevated. Respiratory: Lungs are clear to auscultation. Respirations are non-labored. Breath sounds are equal. Symmetrical chest wall expansion. Cardiovascular: Normal rate. Regular rhythm. No murmur. No gallop. No edema. Gastrointestinal: Soft. Normal bowel sounds. Skin: Warm. Dry. Neurologic: Alert and oriented to person, place, time. Cranial nerves 3-11 grossly intact. Psychiatric: Cooperative. Appropriate mood & affect. Labs Laboratory Tests Test 04/17/22 17:05 04/17/22 21:06 04/18/22 03:26 04/18/22 09:05 Range/Units Troponin I 0.768 *H 0.481 *H <0.028 NG/ML Activated Partial Thromboplast Time 68 H 73 H 81 H 24-35 SEC White Blood Count 14.6 H 4.3-11.0 10^3/uL Red Blood Count 4.80 4.30-5.52 10^6/uL Hemoglobin 13.3 # 13.3-17.7 g/dL Hematocrit 40 40-54 % Mean Corpuscular Volume 83 80-99 fL Mean Corpuscular Hemoglobin 28 25-34 pg Mean Corpuscular Hemoglobin Concent 33 32-36 g/dL Red Cell Distribution Width 15.5 H 10.0-14.5 % Platelet Count 264 130-400 10^3/uL Mean Platelet Volume 9.8 9.0-12.2 fL Sodium Level 137 135-145 MMOL/L Potassium Level 3.7 3.6-5.0 MMOL/L Chloride Level 110 H 98-107 MMOL/L Carbon Dioxide Level 19 L 21-32 MMOL/L Anion Gap 8 5-14 MMOL/L Blood Urea Nitrogen 23 H 7-18 MG/DL Creatinine 0.88 0.60-1.30 MG/DL Estimat Glomerular Filtration Rate 99 BUN/Creatinine Ratio 26 Glucose Level 98 70-105 MG/DL Calcium Level 8.4 L 8.5-10.1 MG/DL Magnesium Level 2.0 1.6-2.4 MG/DL Triglycerides Level 132 <150 MG/DL Cholesterol Level 160 < 200 MG/DL LDL Cholesterol Direct 123 1-129 MG/DL VLDL Cholesterol 26 5-40 MG/DL HDL Cholesterol 24 L 40-60 MG/DL Diagnosis/Problems Diagnosis/Problems (1) Troponin level elevated Assessment & Plan: He is not having any chest pain or other symptoms concerning for coronary ischemia. There is no evidence of a STEMI on his electrocardiogram. This may have been a type II non-ST elevation myocardial infarction related to probable heatstroke with rhabdomyolysis or noncardiac elevation of the troponin due to the acute kidney injury. He has been started on low strength aspirin and heparin infusion. The troponin level trended downwards. His ejection fraction is normal. I discontinued the heparin. From a cardiac standpoint, he can be discharged to home. I have asked him to follow- up with me in the office in 2-4 weeks. We may want to consider an outpatient ischemic evaluation. (2) Acute kidney injury Assessment & Plan: I suspect this may have been due to heatstroke. This improved with intravenous hydration. His creatinine is now normal. (3) Abnormal electrocardiogram Assessment & Plan: His electrocardiogram is abnormal but there is no evidence of a STEMI. His echocardiogram showed a normal ejection fraction. I do not see any urgent need for an ischemic evaluation at this time. (4) Cigarette smoker Status: Chronic Assessment & Plan: He needs to quit smoking. He was counseled in this regard. JAIME CHIRINOS JR, MD Apr 18, 2022 12:57
--- NOTE | 2022-04-18 21:39 | Discharge Summary ---
Discharge Summary Hospital Course Was the Problem List Reviewed?: Yes Problems/Dx: (1) Acute kidney injury (2) Rhabdomyolysis Status: Acute Qualifiers: Qualified Codes: M62.82 - Rhabdomyolysis (3) NSTEMI (non-ST elevated myocardial infarction) Status: Acute (4) Cigarette smoker Status: Chronic Hospital Course Date of Admission: Apr 17, 2022 at 12:33 Admission Diagnosis : NSTEMI, IRENA, rhabdomyolysis Family Physician/Provider: Trinity,Local Physician Date of Discharge: 04/18/22 Discharge Diagnosis: NSTEMI, IRENA, rhabdomyolysis Hospital Course: Rodger Alejandro is a 57 year old male who was admitted with IRENA and rhabdomyolysis. He also had an NSTEMI type II due to dehydration. He was not having any chest pain. Cardiology was consulted and assisted with his care. He was treated with IV fluids and his kidney function returned to normal. He will follow up with Cardiology outpatient for possible ischemic evaluation. He was discharged home in stable condition. Labs and Pending Lab Test: Laboratory Tests 04/18/22 03:26: White Blood Count 14.6H, Red Blood Count 4.80, Hemoglobin 13.3#, Hematocrit 40, Mean Corpuscular Volume 83, Mean Corpuscular Hemoglobin 28, Mean Corpuscular Hemoglobin Concent 33, Red Cell Distribution Width 15.5H, Platelet Count 264, Mean Platelet Volume 9.8, Activated Partial Thromboplast Time 73H, Sodium Level 137, Potassium Level 3.7, Chloride Level 110H, Carbon Dioxide Level 19L, Anion Gap 8, Blood Urea Nitrogen 23H, Creatinine 0.88, Estimat Glomerular Filtration Rate 99, BUN/Creatinine Ratio 26, Glucose Level 98, Calcium Level 8.4L, Magnesium Level 2.0, Triglycerides Level 132, Cholesterol Level 160, LDL Cholesterol Direct 123, VLDL Cholesterol 26, HDL Cholesterol 24L 04/18/22 09:05: Activated Partial Thromboplast Time 81H, Troponin I 0.481*H Microbiology 04/17/22 MRSA Screen - Final, Complete MRSA not isolated 04/17/22 Urine Culture - Final, Complete NO GROWTH Home Meds Active Reported Ibuprofen 200 Mg Tablet 400 Mg PO Q6H PRN Assessment/Pt Instructions Take medications as prescribed. Follow up with your PCP. Return with worsening symptoms. Discharge Planning: <30 minutes discharge planning Discharge Instructions Discharge Diet: No Restrictions Activity as Tolerated: Yes Consultations Cardiology Discharge Physical Examination Vital Signs Vital Signs Date Time Temp Pulse Resp B/P (MAP) Pulse Ox O2 Delivery O2 Flow Rate FiO2 04/18/22 13:55 04/18/22 13:00 85 15 97 Room Air 04/18/22 12:00 36.8 General Appearance: No Apparent Distress, WD/WN Respiratory: Lungs Clear, No Respiratory Distress Cardiovascular: Regular Rate, Rhythm, No Murmur Gastrointestinal: Normal Bowel Sounds, Non Tender, Soft Extremity: Normal Inspection, No Pedal Edema Skin: Normal Color, Warm/Dry Neurologic/Psychiatric: Alert, Normal Mood/Affect Allergies: Coded Allergies: Penicillins (Verified Allergy, Unknown, 02/08/20) Discharge Summary Date of Admission Apr 17, 2022 at 12:33 Date of Discharge Apr 18, 2022 at 13:55 Discharge Date: Apr 18, 2022 Discharge Time: 13:55 Admission Diagnosis NSTEMI Consults/Procedures Consulations Cardiology Discharge Diagnosis NSTEMI IRENA Rhabdomyolysis Tobacco abuse (1) IRENA (acute kidney injury) Status: Acute (2) Rhabdomyolysis Status: Acute Qualifiers: Qualified Codes: M62.82 - Rhabdomyolysis (3) NSTEMI (non-ST elevated myocardial infarction) Status: Acute (4) Cigarette smoker Status: Chronic NGUYEN LERNER MD Apr 18, 2022 21:38
== END 2022-04-18 13:55 | disposition home or self-care (01) | DRG 682 ==
LOC: EDUNIT# 10:49 → ER 10:53 → ICU 12:33
PROVIDERS: ADMIT Internal Medicine; ATTEND Internal Medicine
DX: N17.9 Acute kidney failure, unspecified (principal); I21.A1 Myocardial infarction type 2; M62.82 Rhabdomyolysis; E86.0 Dehydration; F17.210 Nicotine dependence, cigarettes, uncomplicated; K21.9 Gastro-esophageal reflux disease without esophagitis; Z20.822 Contact with and (suspected) exposure to COVID-19; Z88.0 Allergy status to penicillin
CPT/HCPCS: 36415; 71045; 80048; 80053; 80061; 81000; 82550; 83690; 83735; 83880; 84484; 85007; 85027; 85610; 85730; 87081; 87088; 87636; 93005; 93306

== ENCOUNTER 2022-10-21 14:11 | Emergency (ER) | payer MEDICAID ==
[~2022-10-21] VITALS: Ht 167 cm; Wt 72.0 kg
[~2022-10-21 14:11] MED LIST changes: +IBUP-2473 PO
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
[2022-10-21] MEDS ORDERED: IBUPROFEN 600 MG (MOTRIN) TAB PO ONE (14:45)
--- NOTE | 2022-10-21 15:32 | Diagnostic Imaging Report ---
INDICATION: Right knee pain AP, oblique, and lateral views of the right knee are obtained. No fracture or acute bony abnormality is seen. There is mild posterior patellar spurring. Joint spaces are unremarkable IMPRESSION: Mild degenerative change with no acute abnormality of the right knee. Dictated by: Dictated on workstation # [id number]
[2022-10-21] MEDS ORDERED: IBUP-1773 PO (15:41)
[2022-10-21 15:44] VITALS: BP 138/89
== END 2022-10-21 15:45 | disposition home or self-care (01) ==
LOC: EDUNIT# 14:11 → ER 14:14
DX: S83.91XA Sprain of unspecified site of right knee, initial encounter (principal); F17.210 Nicotine dependence, cigarettes, uncomplicated; X50.0XXA Overexertion from strenuous movement or load, initial encounter
CPT/HCPCS: 73562

== ENCOUNTER 2022-10-31 18:36 | Emergency (ER) | payer MEDICAID ==
[~2022-10-31] VITALS: Ht 167.7 cm; Wt 75.0 kg
[~2022-10-31 18:36] MED LIST changes: +IBUP-1773 PO
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
[2022-10-31 19:45] LABS: BASOPHILS # (AUTO) 0.1 10^3/uL (0.0-0.1); BASOPHILS % (AUTO) 1 % (0-10); EOSINOPHILS # (AUTO) 0.2 10^3/uL (0.0-0.3); EOSINOPHILS % (AUTO) 1 % (0-10); HEMATOCRIT 43 % (40-54); HEMOGLOBIN 14.5 g/dL (13.3-17.7); LYMPHOCYTES % (AUTO) 31 % (12-44); MEAN CORPUSCULAR HEMOGLOBIN 28 pg (25-34); MEAN CORPUSCULAR HGB CONC 34 g/dL (32-36); MEAN CORPUSCULAR VOLUME 81 fL (80-99); MEAN PLATELET VOLUME 8.9 fL (9.0-12.2); MONOCYTES # (AUTO) 1.4 10^3/uL (0.0-1.0); MONOCYTES % (AUTO) 9 % (0-12); NEUTROPHILS # (AUTO) 9.3 10^3/uL (1.8-7.8); NEUTROPHILS % (AUTO) 58 % (42-75); PLATELET COUNT 290 10^3/uL (130-400); WHITE BLOOD COUNT 16.1 10^3/uL (4.3-11.0)
[2022-10-31] MEDS ORDERED: ANTACID SUSP 30 ML UDC (MYLANTA) PO ONE (19:45)
[2022-10-31] MEDS ORDERED: morphine INJ 10 MG/ML 1ML (SYR OR VIAL) IVP ONE (19:45)
[2022-10-31] MEDS ORDERED: LIDOCAINE 2% VISCOUS 15 ML UDC PO ONE (19:45)
--- NOTE | 2022-10-31 19:57 | Diagnostic Imaging Report ---
CLINICAL INDICATION: Patient with chest pain. EXAM: Portable chest x-ray upright view. COMPARISON: Chest x-ray dated 04/17/2022. FINDINGS: Lungs/pleura: Lungs are clear. There is no pneumothorax. There is no pleural effusion. Mediastinum: Unremarkable. Pulmonary vasculature: Unremarkable. Heart: Unremarkable. Bones/extrathoracic soft tissue: There are degenerative spurs involving the thoracic spine. IMPRESSION: There is no radiographic evidence of acute cardiopulmonary process. Dictated by: Dictated on workstation # [id number]
[2022-10-31 20:15] LABS: ALANINE AMINOTRANSFERASE 13 U/L (0-55); ALBUMIN 3.7 GM/DL (3.2-4.5); ALKALINE PHOSPHATASE 95 U/L (40-136); BILIRUBIN,TOTAL 0.6 MG/DL (0.1-1.0); BUN/CREATININE RATIO 15; CARBON DIOXIDE 24 MMOL/L (21-32); CHLORIDE 105 MMOL/L (98-107); CREATININE SERUM 0.72 MG/DL (0.60-1.30); GFR ESTIMATED 105; GLUCOSE 95 MG/DL (70-105); LIPASE 33 U/L (8-78); POTASSIUM 3.5 MMOL/L (3.6-5.0); SODIUM 140 MMOL/L (135-145); TOTAL PROTEIN 7.9 GM/DL (6.4-8.2)
[2022-10-31 20:28] LABS: BAND NEUTROPHILS 1 %; EOSINOPHILS % (MANUAL) 1 %; LYMPHOCYTES % (MANUAL) 39 %; METAMYELOCYTES % 1 %; MONOCYTES % (MANUAL) 3 %; NEUTROPHILS % (MANUAL) 54 %
[2022-10-31 20:29] LABS: PLATELET ESTIMATE NORMAL; PROLYMPHOCYTE % 1 %; RBC MORPH NORMAL
[2022-10-31] MEDS ORDERED: PANT40TA2 PO (20:42)
[2022-10-31 20:48] VITALS: BP 144/85
== END 2022-10-31 20:48 | disposition home or self-care (01) ==
LOC: EDUNIT# 18:36 → ER 18:37
DX: R10.13 Epigastric pain (principal); R10.12 Left upper quadrant pain; M25.569 Pain in unspecified knee; G89.29 Other chronic pain; Z79.1 Long term (current) use of non-steroidal anti-inflammatories (NSAID); Z28.310 Unvaccinated for COVID-19
CPT/HCPCS: 36415; 71045; 80053; 83690; 84484; 85007; 85027; 93005

== ENCOUNTER 2023-01-13 11:57 | Emergency (ER) | payer MEDICAID ==
[~2023-01-13] VITALS: Ht 167 cm; Wt 68.0 kg
[~2023-01-13 11:57] MED LIST changes: +PANT40TA2 PO
[2023-01-13 13:25] VITALS: BP 138/84
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
== END 2023-01-13 13:25 | disposition home or self-care (01) ==
LOC: EDUNIT# 11:57 → ER 11:59
DX: S83.91XA Sprain of unspecified site of right knee, initial encounter (principal); X58.XXXA Exposure to other specified factors, initial encounter; Y92.812 Truck as the place of occurrence of the external cause
CPT/HCPCS: 99281

== ENCOUNTER 2023-02-25 06:44 | Outpatient (CLI) | payer MEDICAID ==
[~2023-02-25] VITALS: Ht 167.6 cm; Wt 72.6 kg
[2023-02-25] MEDS ORDERED: FAMO20TA3 PO (12:26)
[2023-02-25] MEDS ORDERED: SUCR1TAB PO (12:26)
== END 2023-02-25 12:31 | disposition home or self-care (01) ==
LOC: PREOP 06:44
PROVIDERS: ATTEND Surgery
DX: Z01.818 Encounter for other preprocedural examination (principal)

== ENCOUNTER 2023-03-06 13:04 | Day surgery (SDC) | payer MEDICAID ==
[~2023-03-06] VITALS: Ht 167.6 cm; Wt 72.6 kg
[~2023-03-06 13:04] MED LIST changes: +FAMO20TA3 PO; +SUCR1TAB PO
[2023-03-06] MEDS ORDERED: LACTATED RINGERS 1,000 ML IV STA (13:05)
[2023-03-06] MEDS ORDERED: HURRICAINE EXT TUBE (BENZOCAINE) XX PRN (13:15)
--- NOTE | 2023-03-06 13:15 | Progress Note-Pre Operative ---
Pre-Operative Progress Note Date H&P Reviewed: Mar 06, 2023 Time H&P Reviewed: 13:14 History & Physical: H&P Reviewed, Patient Examed, No changes noted Pre-Operative Diagnosis: epigastric pain, screening colonoscopy HINA VILCHIS DO Mar 06, 2023 13:14
[2023-03-06 13:21] VITALS: BP 143/89
[2023-03-06] MEDS ORDERED: PROPOFOL INJECTION 50 ML IV ONE (13:54)
--- NOTE | 2023-03-06 14:29 | Anesthesia-General Post-Op ---
MAC Patient Condition Mental Status/LOC: Same as Preop Cardiovascular: Satisfactory Nausea/Vomiting: Absent Respiratory: Satisfactory Pain: Controlled Complications: Absent Post Op Complications Complications None Follow Up Care/Instructions Patient Instructions None needed. Anesthesiology Discharge Order Discharge Order Patient is doing well, no complaints, stable vital signs, no apparent adverse anesthesia problems. No complications reported per nursing. YOSSI PARISI CRNA Mar 06, 2023 14:29
[2023-03-06 14:30] VITALS: BP 90/54
[2023-03-06 14:35] VITALS: BP 95/58
[2023-03-06 14:40] VITALS: BP_SYST 103; BP_SYST 106; BP_DIAS 55; BP_DIAS 56
--- NOTE | 2023-03-06 14:44 | Discharge Inst-Simple/Standard ---
Discharge Inst-Standard Patient Instructions/Follow Up Plan of Care/Instructions/FU: 1 week Alison Activity as Tolerated: Yes Discharge Diet: Regular Diet HINA VILCHIS DO Mar 06, 2023 14:44
--- NOTE | 2023-03-06 14:45 | Progress Note-Post Operative ---
Post-Operative Progess Note Surgeon (s)/Business Case Analyst (s) Surgeon HINA VILCHIS DO Business Case Analyst: na Pre-Operative Diagnosis epigastric pain, screening colonoscopy Post-Operative Diagnosis gastric mass, internal hemorrhoids Procedure & Operative Findings Date of Procedure 03/06/23 Procedure Performed/Findings egd c biopsies, colonoscopy Anesthesia Type per crimp setter Estimated Blood Loss Estimated blood loss (mL): scant Specimens/Packing Specimens Removed gastric mass HINA VILCHIS DO Mar 06, 2023 14:45
[2023-03-06 15:16] VITALS: BP 106/73
[2023-03-06 15:19] VITALS: BP 106/73
--- NOTE | 2023-03-07 04:36 | OPERATIVE REPORT ---
DATE OF SERVICE: 03/06/2023 PREOPERATIVE DIAGNOSES: Epigastric pain, screening colonoscopy. POSTOPERATIVE DIAGNOSES: Gastric mass, internal hemorrhoids. PROCEDURES: EGD with biopsies, colonoscopy. SURGEON: Hina Rosas DO ANESTHESIA: Per ELECTRONIC TESTER. ESTIMATED BLOOD LOSS: Scant. COMPLICATIONS: None. SPECIMENS: Gastric mass. INDICATIONS: The patient is a 57-year-old male who needs screening colonoscopy. He has also been having epigastric abdominal pain. He understands risks and benefits of procedures and wishes to proceed. Consent was signed in chart. DESCRIPTION OF PROCEDURE: The patient was taken to the endoscopy suite, placed in left lateral recumbent position. Timeout was performed. Scope was inserted in the mouth, down the esophagus, stomach and into the duodenum without difficulty. No polyps, masses or ulcerations in the duodenum. Scope was slowly retracted back into the stomach where it was further insufflated. In the antrum, a large antral mass present almost 80% circumferentially around the stomach, very irritated [ ] and firm. Multiple biopsies of this was obtained. Scope was retroflexed noting no other pathology. Scope was returned to its normal position, slowly withdrawn until distal esophagus. No polyps, masses or ulcerations. Scope was slowly retracted back until completely removed. Digital rectal exam was performed. No palpable polyps, masses or ulcerations. Scope was inserted in the rectum and advanced all the way to the cecum with minimal difficulty. Prep was adequate. Scope was slowly retracted back. No polyps, masses or ulcerations in the cecum, ascending, transverse, descending and sigmoid colon. Once in the rectum, scope was retroflexed noting some internal hemorrhoids. No other pathology. Scope was returned to its normal position, slowly withdrawn until completely removed. The patient tolerated the procedure well, no complications, taken to recovery room in stable condition. RECOMMENDATIONS: The patient will follow up on biopsies of the gastric mass. Further recommendation pending those results. If not demonstrating cancer, would definitely repeat EGD and take further biopsies. Colonoscopy did not have any findings. Would repeat colonoscopy in 10 years unless family history of colon cancer, which will then be 5 years. Any issues before that, be seen at that time and be reevaluated. Job ID: [id number] DocumentID: [id number] Dictated Date: 03/06/2023 23:00:06 Eye Glass Frame Polisher Date: 03/07/2023 04:33:00 Dictated By: HINA ROSAS DO
== END 2023-03-06 15:18 | disposition home or self-care (01) ==
LOC: ENDO 13:04
PROVIDERS: ATTEND Surgery
DX: Z12.11 Encounter for screening for malignant neoplasm of colon (principal); C16.3 Malignant neoplasm of pyloric antrum; K64.8 Other hemorrhoids; F17.210 Nicotine dependence, cigarettes, uncomplicated

== ENCOUNTER → 2023-03-24 | Outpatient (CLI) | payer MEDICAID ==
[~2023-03-24] MED LIST changes: +CATHETER FLUSH 10 ML SYR IV PRN; +HOLD METFORMIN - RECEIVED CONTRAST 20 ML VIAL IV SCH; +IOHEXOL 350 MG/ML 100 ML (OMNIPAQUE 350) VIAL IV ONE; +NS 100 ML (IVPB) BAG IV ONE
--- NOTE | 2023-03-24 15:17 | Diagnostic Imaging Report ---
EXAMINATION: CT chest with intravenous contrast. TECHNIQUE: Multiple contiguous axial images were obtained through the chest after the uneventful administration of intravenous contrast. All CT scans use one or more of the following dose optimizing techniques: automated exposure control, MA and/or KvP adjustment based on patient size and exam type or iterative reconstruction. HISTORY: Gastric cancer COMPARISON: None available. FINDINGS: There is no edema or pneumonia. No pleural effusion. No pneumothorax. There is a 3 mm fissural nodule along the right minor fissure likely a lymph node. No other nodules are seen. There is no axillary or supraclavicular lymphadenopathy. There is no mediastinal lymphadenopathy. Heart size is normal. There are mild coronary artery calcifications. No pericardial effusion. Aorta is normal in caliber. Limited views of the upper abdomen are unremarkable. There are no suspicious osseus lesions. IMPRESSION: 1. No metastatic disease seen in the chest. Dictated by: Dictated on workstation # [id number]
== END ==
LOC: RAD 11:21
PROVIDERS: ATTEND Internal Medicine Hematology & Oncology
DX: C16.9 Malignant neoplasm of stomach, unspecified (principal)
CPT/HCPCS: 71260

== ENCOUNTER 2023-03-25 08:42 | Outpatient (RCR) | payer MEDICAID ==
[2023-03-18 11:59] LABS: BASOPHILS # (AUTO) 0.1 10^3/uL (0.0-0.1); BASOPHILS % (AUTO) 1 % (0-10); EOSINOPHILS # (AUTO) 0.2 10^3/uL (0.0-0.3); EOSINOPHILS % (AUTO) 2 % (0-10); HEMATOCRIT 46 % (40-54); HEMOGLOBIN 15.1 g/dL (13.3-17.7); LYMPHOCYTES # (AUTO) 4.3 10^3/uL (1.0-4.0); LYMPHOCYTES % (AUTO) 35 % (12-44); MEAN CORPUSCULAR HEMOGLOBIN 27 pg (25-34); MEAN CORPUSCULAR HGB CONC 33 g/dL (32-36); MEAN CORPUSCULAR VOLUME 84 fL (80-99); MEAN PLATELET VOLUME 10.2 fL (9.0-12.2); MONOCYTES % (AUTO) 8 % (0-12); NEUTROPHILS # (AUTO) 6.7 10^3/uL (1.8-7.8); NEUTROPHILS % (AUTO) 54 % (42-75); PLATELET COUNT 307 10^3/uL (130-400); WHITE BLOOD COUNT 12.4 10^3/uL (4.3-11.0)
[2023-03-18 12:16] LABS: ALBUMIN 3.7 GM/DL (3.2-4.5); BILIRUBIN,TOTAL 0.4 MG/DL (0.1-1.0); CALCIUM 8.9 MG/DL (8.5-10.1); CREATININE SERUM 0.75 MG/DL (0.60-1.30); POTASSIUM 3.7 MMOL/L (3.6-5.0); TOTAL PROTEIN 7.6 GM/DL (6.4-8.2)
[~2023-03-25 08:42] MED LIST changes: -CATHETER FLUSH 10 ML SYR IV PRN; -HOLD METFORMIN - RECEIVED CONTRAST 20 ML VIAL IV SCH; -IOHEXOL 350 MG/ML 100 ML (OMNIPAQUE 350) VIAL IV ONE; -NS 100 ML (IVPB) BAG IV ONE
== END 2023-04-13 | disposition home or self-care (01) ==
LOC: ONC 08:42
PROVIDERS: ATTEND Internal Medicine Hematology & Oncology
DX: C16.9 Malignant neoplasm of stomach, unspecified (principal)
CPT/HCPCS: 80053; 85025

== ENCOUNTER 2023-05-12 10:13 | Outpatient (RCR) | payer MEDICAID ==
[~2023-05-12 10:13] MED LIST changes: +FAMO-356 PO; -FAMO20TA3 PO
== END 2023-05-14 | disposition home or self-care (01) ==
LOC: ONC 10:13
PROVIDERS: ATTEND Internal Medicine Hematology & Oncology
DX: C16.9 Malignant neoplasm of stomach, unspecified (principal)
CPT/HCPCS: 99214

== ENCOUNTER 2023-05-21 05:32 | Outpatient (CLI) | payer MEDICAID ==
[~2023-05-21] VITALS: Ht 167.7 cm; Wt 70.0 kg
[2023-05-22] MEDS ORDERED: ACHD5005 PO (12:32)
== END 2023-05-21 15:45 | disposition home or self-care (01) ==
LOC: PREOP 05:32
PROVIDERS: ATTEND Surgery
DX: Z01.818 Encounter for other preprocedural examination (principal)

== ENCOUNTER 2023-05-22 10:48 | Day surgery (SDC) | payer MEDICAID ==
[2023-05-22] VITALS (8 sets, daily range): BP systolic 90–132; BP diastolic 55–97
[~2023-05-22] VITALS: Ht 167.7 cm; Wt 70.0 kg
[2023-05-22] MEDS ORDERED: CLINDAMYCIN 600 MG/50 ML IVPB 50 ML IV ONE (11:00)
[2023-05-22] MEDS ORDERED: LACTATED RINGERS 1,000 ML 1,000 ML IV PRN (11:00)
[2023-05-22] MEDS ORDERED: HEParin (CENTRAL IV FLUSH) 500 UNIT/5 ML SYR ONE (11:08)
[2023-05-22] MEDS ORDERED: LIDOCAINE/EPI 1%-1:200,000 (XYLOCAINE) 30 ML VIAL ONE (11:08)
[2023-05-22] MEDS ORDERED: 0.9% SODIUM CHLORIDE PF INJ 20 ML VIAL ONE (11:08)
--- NOTE | 2023-05-22 11:30 | Progress Note-Pre Operative ---
Pre-Operative Progress Note Date H&P Reviewed: May 22, 2023 Time H&P Reviewed: 11:30 History & Physical: H&P Reviewed, Patient Examed, No changes noted Pre-Operative Diagnosis: MALIGNANCY OF STOMACH HINA VILCHIS DO May 22, 2023 11:30
--- NOTE | 2023-05-22 12:25 | Anesthesia-General Post-Op ---
MAC Patient Condition Mental Status/LOC: Same as Preop Cardiovascular: Satisfactory Nausea/Vomiting: Absent Respiratory: Satisfactory Pain: Controlled Complications: Absent Post Op Complications Complications None Follow Up Care/Instructions Patient Instructions None needed. Anesthesiology Discharge Order Discharge Order Patient is doing well, no complaints, stable vital signs, no apparent adverse anesthesia problems. No complications reported per nursing. PASCUAL VENTURA CRNA May 22, 2023 12:25
[2023-05-22] MEDS ORDERED: morphine INJ 10 MG/ML 1ML (SYR OR VIAL) IVP ONE ×2 (12:30)
[2023-05-22] MEDS ORDERED: ONDANSETRON INJECTION 4 MG/2 ML (SDV) IVP PRN ×2 (12:30)
[2023-05-22] MEDS ORDERED: MEPERIDINE INJ 50 MG/ML VIAL IVP ONE (12:30)
[2023-05-22] MEDS ORDERED: ACHD5005 PO (12:32)
--- NOTE | 2023-05-22 12:37 | Discharge Inst-Simple/Standard ---
Discharge Inst-Standard Discharge Medications New, Converted or Re-Newed RX: Transmitted to Pharmacy Patient Instructions/Follow Up Plan of Care/Instructions/FU: 2 weeks Alison Activity as Tolerated: No Discharge Diet: Regular Diet Other Inst to Patient Follow up Appt: Make appointment for 2 week. Instructions: No lifting greater than 10 pounds. No strenuous activity. May shower in 24 hours, no tub bath or soaking. Use incentive spirometer at home as directed. No Smoking Skin/Wound Care: You have special glue over your incision that will fall off on it's own. For first [address] ice pack over the area on 15 min and off 30 min and repeat. Symptoms to Report: Appetite Changes, Extremity Discoloration, Numbness/Tingling, Swelling Increased, Bleeding Excessive, Eyesight Changes, Pain Increased, Urine Color Change, Constipation(Persistent), Fever over 101 degree F, Pain/Pressure in chest, Urinating Difficulty, Cough Up/Vomit Blood, Heart Beat Irreg/Pounding, Pain/Pressure in jaw, Vaginal Bleeding Increase, Cramps in feet or legs, Lighth eadedness, Pain/Pressure in shoulder, Diarrhea(Persistent), Memory Changes Suddenly, Questions/Concerns, Weight gain consecutive days, Dizziness/Fainting, Nausea/Vomiting, Shortness of Breath, Weight gain over 2 pounds If questions or concerns contact your physician Or seek help at emergency department. HINA VILCHIS DO May 22, 2023 12:37
--- NOTE | 2023-05-22 12:39 | Progress Note-Post Operative ---
Post-Operative Progess Note Surgeon (s)/Auto Transmission Specialist (s) Surgeon HINA VILCHIS DO Auto Transmission Specialist: na Pre-Operative Diagnosis MALIGNANCY OF STOMACH Post-Operative Diagnosis same Procedure & Operative Findings Date of Procedure 05/22/23 Procedure Performed/Findings PROCEDURE: Right internal jugular port placement using ultrasound guidance. COMPLICATIONS: None. INDICATIONS: The patient is a 58 year old male with malignancy of stomach. Patient understands the risks and benefits of port placement and wished to proceed with the procedure. Consent was signed on the chart. PROCEDURE: The patient was taken to the operating suite, was prepped and draped in the sterile fashion. A surgical pause was performed. Ultrasound was used to locate the internal jugular vein. Once located anesthetic was infiltrated above it. Using micro-access kit, the right internal vein was accessed. Dark nonpulsatile blood was withdrawn. The wire was inserted. Fluoroscopy assured proper placement. The needle was removed. The micro-access dilator was advanced over the wire and the wire was removed. The regular wire was inserted and fluoroscopy assured proper placement. The wire was then secured. Local anesthetic was used to anesthetize from the neck for tunneling down to the right chest and for pocket creation. A 15 blade scalpel was used to make an incision over the right chest. Cautery was used to dissect down to the pectoral fascia. A pocket was created with blunt dissection. The dilator sheath was then advanced over the wire under fluoroscopy and the dilator and wire were removed. The Groshong catheter was inserted through the sheath and the sheath was then removed. The Groshong wire was removed. The catheter was then tunneled to the right chest pocket. Fluoroscopy was used to cut to length and this was then attached to the port which was then placed within the pocket. The port was then accessed without difficulty. It was then flushed with saline and then heparin. The subcutaneous tissues were then reapproximated using 3-0 Vicryl. The areas were then washed and dried. Skin Affix was placed over incision. The insertion point of the neck Skin Affix was placed over the incision. The patient tolerated the procedure well without complication and was taken to recovery room in stable condition. Chest x-ray is pending. Anesthesia Type mac c local Estimated Blood Loss Estimated blood loss (mL): minimal Specimens/Packing Specimens Removed HINA Douglas DO May 22, 2023 12:39
--- NOTE | 2023-05-22 13:09 | Diagnostic Imaging Report ---
HISTORY: Postoperative port placement. TECHNIQUE: Frontal view of the chest COMPARISON: 10/31/2022 FINDINGS: Lung volumes are normal. No consolidation is seen. There is no pleural effusion or pneumothorax. The cardiac silhouette is normal in size. The right Port-A-Cath projects over the mid SVC. IMPRESSION: 1. Right Port-A-Cath projects over the mid SVC. No pneumothorax. Dictated by: Dictated on workstation # [id number]
[2023-05-22] MEDS ORDERED: LIDOCAINE 2% w/EPI 1:100,000 20 ML VIAL IJ ONE (13:13)
[2023-05-22] MEDS ORDERED: HYDROcodone/ACETAMINOPHEN 5 MG/325 MG TABLET ONE (13:42)
[2023-05-22] MEDS ORDERED: HYDROcodone/ACETAMINOPHEN 5 MG/325 MG TABLET PO ONE ×2 (13:45→18:15)
--- NOTE | 2023-05-22 16:49 | Diagnostic Imaging Report ---
INDICATION: Right chest wall port placement Fluoroscopy was utilized in the operating room for 25 seconds while right anterior chest wall port was placed. Limited view of the right chest reveals port to be in good position with catheter tip reaching the mid superior vena cava. IMPRESSION: No evidence of complication during right anterior chest wall port placement. Dictated by: Dictated on workstation # [id number]
== END 2023-05-22 14:25 | disposition home or self-care (01) ==
LOC: SDC 10:48
PROVIDERS: ATTEND Surgery
DX: C16.9 Malignant neoplasm of stomach, unspecified (principal); I87.2 Venous insufficiency (chronic) (peripheral); F17.210 Nicotine dependence, cigarettes, uncomplicated
CPT/HCPCS: 71045; 76000; 87081

== ENCOUNTER 2023-06-10 13:54 | Outpatient (RCR) | payer MEDICAID ==
[2023-05-25 10:00] VITALS: BP 136/87
[2023-05-25 10:02] LABS: BASOPHILS % (AUTO) 0 % (0-10); EOSINOPHILS % (AUTO) 0 % (0-10); HEMATOCRIT 40 % (40-54); HEMOGLOBIN 13.2 g/dL (13.3-17.7); LYMPHOCYTES # (AUTO) 2.1 10^3/uL (1.0-4.0); LYMPHOCYTES % (AUTO) 12 % (12-44); MEAN CORPUSCULAR HEMOGLOBIN 28 pg (25-34); MEAN CORPUSCULAR HGB CONC 33 g/dL (32-36); MEAN CORPUSCULAR VOLUME 83 fL (80-99); MEAN PLATELET VOLUME 9.4 fL (9.0-12.2); MONOCYTES # (AUTO) 0.6 10^3/uL (0.0-1.0); MONOCYTES % (AUTO) 3 % (0-12); NEUTROPHILS # (AUTO) 15.2 10^3/uL (1.8-7.8); NEUTROPHILS % (AUTO) 84 % (42-75); PLATELET COUNT 305 10^3/uL (130-400); WHITE BLOOD COUNT 18.1 10^3/uL (4.3-11.0)
[2023-05-25 10:18] LABS: ALBUMIN 3.7 GM/DL (3.2-4.5); BILIRUBIN,TOTAL 0.4 MG/DL (0.1-1.0); CALCIUM 8.8 MG/DL (8.5-10.1); CREATININE SERUM 0.73 MG/DL (0.60-1.30); POTASSIUM 3.8 MMOL/L (3.6-5.0); TOTAL PROTEIN 7.4 GM/DL (6.4-8.2)
[2023-05-25] MEDS: D5W 500 ML IV SOLUTION 500 ML IV SCH (10:33)
[2023-05-25] MEDS: PALONOSETRON HCL IV SCH (10:37)
[2023-05-25] MEDS: NS IV SCH ×2 (10:37→14:39)
[2023-05-25] MEDS: DEXAMETHASONE SODIUM PHOSPHATE IV SCH (10:37)
[2023-05-25] MEDS: OXALIPLATIN IV SCH (11:05)
[2023-05-25] MEDS: D5W IV SCH (11:05)
[2023-05-25] MEDS: NORMAL SALINE IV SCH (13:25)
[2023-05-25] MEDS: DOCETAXEL IV SCH (13:25)
[2023-05-25] MEDS: FLUOROURACIL IV SCH (14:39)
[2023-06-09 09:42] LABS: BASOPHILS # (AUTO) 0.1 10^3/uL (0.0-0.1); BASOPHILS % (AUTO) 2 % (0-10); EOSINOPHILS # (AUTO) 0.1 10^3/uL (0.0-0.3); EOSINOPHILS % (AUTO) 1 % (0-10); HEMATOCRIT 39 % (40-54); HEMOGLOBIN 12.7 g/dL (13.3-17.7); LYMPHOCYTES # (AUTO) 3.5 10^3/uL (1.0-4.0); LYMPHOCYTES % (AUTO) 59 % (12-44); MEAN CORPUSCULAR HEMOGLOBIN 27 pg (25-34); MEAN CORPUSCULAR HGB CONC 33 g/dL (32-36); MEAN CORPUSCULAR VOLUME 83 fL (80-99); MEAN PLATELET VOLUME 9.1 fL (9.0-12.2); MONOCYTES # (AUTO) 1.4 10^3/uL (0.0-1.0); MONOCYTES % (AUTO) 23 % (0-12); NEUTROPHILS # (AUTO) 0.9 10^3/uL (1.8-7.8); NEUTROPHILS % (AUTO) 14 % (42-75); PLATELET COUNT 378 10^3/uL (130-400)
[2023-06-09 09:47] LABS: ALBUMIN 3.6 GM/DL (3.2-4.5); BILIRUBIN,TOTAL 0.5 MG/DL (0.1-1.0); CALCIUM 8.9 MG/DL (8.5-10.1); CREATININE SERUM 0.75 MG/DL (0.60-1.30); MAGNESIUM 2.2 MG/DL (1.6-2.4); POTASSIUM 3.9 MMOL/L (3.6-5.0); TOTAL PROTEIN 7.3 GM/DL (6.4-8.2)
[2023-06-09] MEDS: D5W 500 ML IV SOLUTION 500 ML IV SCH (09:54)
[2023-06-09] MEDS: PALONOSETRON HCL IV SCH (09:55)
[2023-06-09] MEDS: DEXAMETHASONE SODIUM PHOSPHATE IV SCH (09:55)
[2023-06-09] MEDS: NS IV SCH ×2 (09:55→13:43)
[2023-06-09] MEDS: NORMAL SALINE IV SCH (10:20)
[2023-06-09] MEDS: DOCETAXEL IV SCH (10:20)
[2023-06-09 10:47] VITALS: BP 140/91
[2023-06-09] MEDS: OXALIPLATIN IV SCH (11:28)
[2023-06-09] MEDS: D5W IV SCH (11:28)
[2023-06-09] MEDS: FLUOROURACIL IV SCH (13:43)
[~2023-06-10] VITALS: Ht 167.6 cm; Wt 70.0 kg
[~2023-06-10 13:54] MED LIST changes: +ACHD5005 PO; +D5W IV SCH; +HEParin (CENTRAL IV FLUSH) 500 UNIT/5 ML SYR IV PRN; +LEUCOVORIN CALCIUM IV SCH
== END 2023-06-13 | disposition home or self-care (01) ==
LOC: ONC 13:54
PROVIDERS: ATTEND Internal Medicine Hematology & Oncology
DX: Z51.11 Encounter for antineoplastic chemotherapy (principal); Z45.2 Encounter for adjustment and management of vascular access device; C16.9 Malignant neoplasm of stomach, unspecified; I73.9 Peripheral vascular disease, unspecified
CPT/HCPCS: 36591; 80053; 83735; 85025; 96368; 96375; 96413; 96415; 96416; 96417; 99214

== ENCOUNTER 2023-06-19 13:13 | Emergency (ER) | payer MEDICAID ==
[~2023-06-19] VITALS: Ht 167.6 cm; Wt 70.3 kg
[~2023-06-19 13:13] MED LIST changes: -D5W IV SCH; -HEParin (CENTRAL IV FLUSH) 500 UNIT/5 ML SYR IV PRN; -LEUCOVORIN CALCIUM IV SCH
[2023-06-19] MEDS ORDERED: morphine INJ 10 MG/ML 1ML (SYR OR VIAL) IVP STA (13:29)
[2023-06-19] MEDS ORDERED: oxyCODONE/ACETAMINOPHEN 10/325MG TABLET PO ONE (13:30)
--- NOTE | 2023-06-19 13:31 | ED Abdominal Pain ---
General Chief Complaint: Abdominal/GI Problems Stated Complaint: ABD PAIN Nursing Triage Note: STATES STOMACH CA, PATIENT STATES SINCE 04 AM TODAY HAS HAD SEVERE ABDOMINAL PAIN. STATES TOOK LORTAB AND DID NOT TOUCH PAIN. LAST CHEMO LAST WEEK NEXT ONE ON THE TENTH. Source of Information: Patient Exam Limitations: No Limitations History of Present Illness Date Seen by Provider: Jun 19, 2023 Time Seen by Provider: 13:19 Initial Comments 58-year-old male presents emergency department today for abdominal pain. He has a history of gastric adenocarcinoma and is undergoing chemotherapy. He states his pain is constant and has been present since the onset of his cancer. He denies any recent changes. No nausea vomiting or fevers. No changes in bowel or bladder habits. He takes hydrocodone 5/325 at home. He called the cancer center and was advised to take 2 of these but he states it makes him sick when he does. Requesting something stronger for pain. All other systems reviewed and negative except documented per HPI. Voice recognition software was used to help create this chart Allergies and Home Medications Allergies Coded Allergies: Penicillins (Verified Allergy, Unknown, 05/21/23) Patient Home Medication List Home Medication List Reviewed: Yes Hydrocodone/Acetaminophen (Hydrocodone-Acetamin 5-325 mg) 5 Mg-325 Mg Tablet, 1 EACH PO Q4H PRN for PAIN-MODERATE (5-7) Prescribed by: HINA VILCHIS on 05/22/23 1234 Oxycodone HCl/Acetaminophen (Oxycodon-Acetaminophen 7.5-325) 7.5 Mg-325 Mg Tablet, 1 EACH PO Q6H PRN for PAIN-MODERATE Prescribed by: KOKO LARKIN MD on 06/19/23 1334 Sucralfate (Sucralfate) 1 Gram Tablet, 1 GM PO QID, (Reported) Entered as Reported by: ANALY YANCEY on 02/25/23 1226 Review of Systems Review of Systems Constitutional: see HPI Past [id number]-[id number] Hx Patient Social History Tobacco Use?: No Use of E-Cig and/or Vaping dev: No Substance use?: No Alcohol Use?: No Immunizations Up To Date Tetanus Booster (TDap): Unknown First/Initial COVID19 Vaccinat: 2020 Second COVID19 Vaccination Oziel: 2020 Third COVID19 Vaccination Date: 2020 Seasonal Allergies Seasonal Allergies: No Past Medical History Surgery/Hospitalization HX: SKIN GRAFT TO L LEG, STOMACH CA Surgeries: Yes (SKIN GRAFT) Respiratory: No Cardiac: Yes Hypertension Neurological: No Sexually Transmitted Disease: No Genitourinary: No Gastrointestinal: Yes (STOMACH CA) Gastroesophageal Reflux, Chronic Constipation Musculoskeletal: Yes Chronic Back Pain Endocrine: No HEENT: No Loss of Vision: Denies Hearing Impairment: Denies Cancer: Yes Stomach Psychosocial: No Integumentary: No Blood Disorders: No Family Medical History No Pertinent Family Hx Physical Exam Vital Signs Vital Signs - First Documented 06/19/23 13:18 Pulse 97 Resp 20 B/P (MAP) 152/102 (119) Pulse Ox 100 O2 Delivery Room Air Capillary Refill : Less Than 3 Seconds Height/Weight/BMI Height: 5'6" Weight: 185lbs. oz. 83.342171ua; 25.00 BMI Method:Stated General Appearance: WD/WN, no apparent distress HEENT: normal ENT inspection, pharynx normal Neck: non-tender, supple Respiratory: chest non-tender, lungs clear, normal breath sounds, no respiratory distress, no accessory muscle use Cardiovascular: regular rate, rhythm, no murmur Gastrointestinal: soft, tenderness (Diffuse tenderness worse in the left upper quadrant and epigastric region. Voluntary guarding without rebound tenderness. No rigidity.) Extremities: non-tender, normal inspection, normal capillary refill Neurologic/Psychiatric: alert, oriented x 3 Skin: normal color, warm/dry Progress/Results/Core Measures Results/Orders My Orders Orders - CHAYAKOKO DO Morphine Injection (Morphine Injection (06/19/23 13:29) Oxycodone/Apap 10/325mg Tablet (Oxycodon (06/19/23 13:30) Ondansetron Injection (Ondansetron Inj (06/19/23 13:45) Magnesium Citrate Oral Soln (Citrate Of (06/19/23 13:45) Medications Given in ED Current Medications Medications Dose Ordered Sig/Miles Route Start Time Stop Time Status Last Admin Dose Admin Magnesium Citrate 300 ml ONCE ONCE PO 06/19/23 13:45 06/19/23 13:46 DC 06/19/23 14:17 300 ML Ondansetron HCl 8 mg ONCE ONCE IVP 06/19/23 13:45 06/19/23 13:46 DC 06/19/23 13:39 8 MG Oxycodone/ Acetaminophen 1 tab ONCE ONCE PO 06/19/23 13:30 06/19/23 13:31 DC 06/19/23 13:49 1 TAB Vital Signs/I&O 06/19/23 06/19/23 13:18 14:18 Pulse 97 93 Resp 20 20 B/P (MAP) 152/102 (119) 154/92 Pulse Ox 100 97 O2 Delivery Room Air Room Air Blood Pressure Mean: 119 Departure Communication (Admissions) Pain is controlled morphine, p.o. oxycodone. He has no changes in his chronic symptoms, likely just needs more pain control given his cancer history. We will give him enough to get him through the weekend and then advised he needed to see his cancer doctor for further pain management. He states understanding. Impression Primary Impression: Chronic abdominal pain Additional Impression: Gastric adenocarcinoma Disposition: HOME, SELF-CARE Condition: Stable Departure-Patient Inst. Referrals: RICHY SÁNCHEZ DO (PCP) Primary Care Physician [facility] (Family) Primary Care Physician Patient Instructions: Abdominal Pain, Adult ED Add. Discharge Instructions: Stop taking hydrocodone and start taking the oxycodone 7.5 mg tablets. Sure to take stool softeners while taking these as they will cause constipation. You may take 2 tablets if you have severe pain. Follow-up with your cancer doctor on Thursday for further pain management strategies. Return to the emergency department for any severe concerns. All discharge instructions reviewed with patient and/or family. Voiced understanding. Scripts Oxycodone HCl/Acetaminophen (Oxycodon-Acetaminophen 7.5-325) 7.5 Mg-325 Mg Tablet 1 EACH PO Q6H PRN for PAIN-MODERATE MDD 4 for 3 Days, #12 TAB Prov: KOKO LARKIN DO 06/19/23 KOKO LARKIN DO Jun 19, 2023 13:31
[2023-06-19] MEDS ORDERED: OXYC1TAB15 PO (13:33)
[2023-06-19] MEDS ORDERED: MAGNESIUM CITRATE 300 ML BTL PO ONE (13:45)
[2023-06-19] MEDS ORDERED: ONDANSETRON INJECTION 4 MG/2 ML (SDV) IVP ONE (13:45)
[2023-06-19 14:18] VITALS: BP 154/92
== END 2023-06-19 14:18 | disposition home or self-care (01) ==
LOC: EDUNIT# 13:13 → ER 13:14
DX: C16.9 Malignant neoplasm of stomach, unspecified (principal); G89.29 Other chronic pain; Z79.899 Other long term (current) drug therapy
CPT/HCPCS: 99283

== ENCOUNTER 2023-06-30 09:29 | Outpatient (RCR) | payer MEDICAID ==
[2023-06-16 10:35] LABS: BASOPHILS # (AUTO) 0.1 10^3/uL (0.0-0.1); BASOPHILS % (AUTO) 1 % (0-10); EOSINOPHILS # (AUTO) 0.1 10^3/uL (0.0-0.3); EOSINOPHILS % (AUTO) 1 % (0-10); HEMATOCRIT 38 % (40-54); HEMOGLOBIN 12.5 g/dL (13.3-17.7); LYMPHOCYTES # (AUTO) 4.9 10^3/uL (1.0-4.0); LYMPHOCYTES % (AUTO) 42 % (12-44); MEAN CORPUSCULAR HEMOGLOBIN 27 pg (25-34); MEAN CORPUSCULAR HGB CONC 33 g/dL (32-36); MEAN CORPUSCULAR VOLUME 84 fL (80-99); MEAN PLATELET VOLUME 9.6 fL (9.0-12.2); MONOCYTES # (AUTO) 0.5 10^3/uL (0.0-1.0); MONOCYTES % (AUTO) 4 % (0-12); NEUTROPHILS # (AUTO) 6.1 10^3/uL (1.8-7.8); NEUTROPHILS % (AUTO) 52 % (42-75); PLATELET COUNT 395 10^3/uL (130-400); WHITE BLOOD COUNT 11.8 10^3/uL (4.3-11.0)
[2023-06-23 09:14] LABS: BASOPHILS % (AUTO) 1 % (0-10); EOSINOPHILS % (AUTO) 0 % (0-10); HEMATOCRIT 38 % (40-54); HEMOGLOBIN 12.6 g/dL (13.3-17.7); LYMPHOCYTES # (AUTO) 1.4 10^3/uL (1.0-4.0); LYMPHOCYTES % (AUTO) 18 % (12-44); MEAN CORPUSCULAR HEMOGLOBIN 28 pg (25-34); MEAN CORPUSCULAR HGB CONC 33 g/dL (32-36); MEAN CORPUSCULAR VOLUME 84 fL (80-99); MEAN PLATELET VOLUME 9.6 fL (9.0-12.2); MONOCYTES # (AUTO) 0.1 10^3/uL (0.0-1.0); MONOCYTES % (AUTO) 1 % (0-12); NEUTROPHILS # (AUTO) 6.2 10^3/uL (1.8-7.8); NEUTROPHILS % (AUTO) 80 % (42-75); PLATELET COUNT 309 10^3/uL (130-400); WHITE BLOOD COUNT 7.8 10^3/uL (4.3-11.0)
[2023-06-23 09:32] LABS: ALBUMIN 3.8 GM/DL (3.2-4.5); BILIRUBIN,TOTAL 0.5 MG/DL (0.1-1.0); CALCIUM 9.2 MG/DL (8.5-10.1); CREATININE SERUM 0.79 MG/DL (0.60-1.30); POTASSIUM 4.1 MMOL/L (3.6-5.0); TOTAL PROTEIN 7.9 GM/DL (6.4-8.2)
[2023-06-23 09:44] VITALS: BP 147/84
[~2023-06-30 09:29] MED LIST changes: +D5W 500 ML IV SOLUTION 500 ML IV SCH; +D5W IV SCH; +DEXAMETHASONE SODIUM PHOSPHATE IV SCH; +DOCETAXEL IV SCH; +FLUOROURACIL IV SCH; +HEParin (CENTRAL IV FLUSH) 500 UNIT/5 ML SYR IV PRN; +LEUCOVORIN CALCIUM IV SCH; +NORMAL SALINE IV SCH; +NS IV SCH; +OXALIPLATIN IV SCH; +OXYC1TAB15 PO; +PALONOSETRON HCL IV SCH
[2023-06-30 10:05] LABS: BASOPHILS # (AUTO) 0.1 10^3/uL (0.0-0.1); BASOPHILS % (AUTO) 1 % (0-10); EOSINOPHILS # (AUTO) 0.1 10^3/uL (0.0-0.3); EOSINOPHILS % (AUTO) 1 % (0-10); HEMATOCRIT 40 % (40-54); LYMPHOCYTES # (AUTO) 3.6 10^3/uL (1.0-4.0); LYMPHOCYTES % (AUTO) 41 % (12-44); MEAN CORPUSCULAR HEMOGLOBIN 27 pg (25-34); MEAN CORPUSCULAR HGB CONC 33 g/dL (32-36); MEAN CORPUSCULAR VOLUME 84 fL (80-99); MEAN PLATELET VOLUME 9.2 fL (9.0-12.2); MONOCYTES # (AUTO) 0.7 10^3/uL (0.0-1.0); MONOCYTES % (AUTO) 8 % (0-12); NEUTROPHILS # (AUTO) 4.3 10^3/uL (1.8-7.8); NEUTROPHILS % (AUTO) 49 % (42-75); PLATELET COUNT 339 10^3/uL (130-400); WHITE BLOOD COUNT 8.7 10^3/uL (4.3-11.0)
[2023-06-30 10:26] LABS: ALBUMIN 3.7 GM/DL (3.2-4.5); BILIRUBIN,TOTAL 0.4 MG/DL (0.1-1.0); CALCIUM 9.3 MG/DL (8.5-10.1); CREATININE SERUM 0.88 MG/DL (0.60-1.30); MAGNESIUM 2.4 MG/DL (1.6-2.4); POTASSIUM 3.3 MMOL/L (3.6-5.0); TOTAL PROTEIN 7.7 GM/DL (6.4-8.2)
[2023-06-30] MEDS ORDERED: PANT40TA2 PO (13:53)
[2023-06-30] MEDS ORDERED: OXYC1TAB15 PO (13:53)
[2023-07-07 09:12] LABS: BASOPHILS % (AUTO) 1 % (0-10); EOSINOPHILS % (AUTO) 1 % (0-10); HEMATOCRIT 36 % (40-54); HEMOGLOBIN 11.7 g/dL (13.3-17.7); LYMPHOCYTES # (AUTO) 1.6 10^3/uL (1.0-4.0); LYMPHOCYTES % (AUTO) 48 % (12-44); MEAN CORPUSCULAR HEMOGLOBIN 27 pg (25-34); MEAN CORPUSCULAR HGB CONC 33 g/dL (32-36); MEAN CORPUSCULAR VOLUME 82 fL (80-99); MEAN PLATELET VOLUME 9.1 fL (9.0-12.2); MONOCYTES # (AUTO) 0.2 10^3/uL (0.0-1.0); MONOCYTES % (AUTO) 7 % (0-12); NEUTROPHILS # (AUTO) 1.5 10^3/uL (1.8-7.8); NEUTROPHILS % (AUTO) 43 % (42-75); PLATELET COUNT 330 10^3/uL (130-400); WHITE BLOOD COUNT 3.4 10^3/uL (4.3-11.0)
[2023-07-07 09:33] LABS: ALBUMIN 3.5 GM/DL (3.2-4.5); BILIRUBIN,TOTAL 0.3 MG/DL (0.1-1.0); CALCIUM 9.1 MG/DL (8.5-10.1); CREATININE SERUM 0.72 MG/DL (0.60-1.30); POTASSIUM 3.5 MMOL/L (3.6-5.0); TOTAL PROTEIN 7.4 GM/DL (6.4-8.2)
== END 2023-07-06 11:52 | disposition home or self-care (01) ==
LOC: ONC 09:29
PROVIDERS: ATTEND Internal Medicine Hematology & Oncology
DX: Z51.11 Encounter for antineoplastic chemotherapy (principal); C16.9 Malignant neoplasm of stomach, unspecified
CPT/HCPCS: 36415; 36591; 80053; 83735; 85025; 96368; 96375; 96413; 96415; 96417; 99214

== ENCOUNTER 2023-06-30 11:02 | Emergency (ER) | payer MEDICAID ==
[~2023-06-30] VITALS: Ht 167 cm; Wt 64.0 kg
[~2023-06-30 11:02] MED LIST changes: -D5W 500 ML IV SOLUTION 500 ML IV SCH; -D5W IV SCH; -DEXAMETHASONE SODIUM PHOSPHATE IV SCH; -DOCETAXEL IV SCH; -FLUOROURACIL IV SCH; -HEParin (CENTRAL IV FLUSH) 500 UNIT/5 ML SYR IV PRN; -LEUCOVORIN CALCIUM IV SCH; -NORMAL SALINE IV SCH; -NS IV SCH; -OXALIPLATIN IV SCH; -PALONOSETRON HCL IV SCH
[2023-06-30] MEDS ORDERED: morphine INJ 10 MG/ML 1ML (SYR OR VIAL) IVP STA ×2 (11:29→12:50)
[2023-06-30] MEDS ORDERED: NS IV 1000 ML 1,000 ML IV SCH (11:45)
[2023-06-30] MEDS ORDERED: NS 100 ML (IVPB) BAG IV ONE ×2 (11:45→12:30)
[2023-06-30] MEDS ORDERED: HOLD METFORMIN - RECEIVED CONTRAST 20 ML VIAL IV SCH ×2 (11:45→12:30)
[2023-06-30] MEDS ORDERED: IOHEXOL 350 MG/ML 100 ML (OMNIPAQUE 350) VIAL IV ONE ×2 (11:45→12:30)
--- NOTE | 2023-06-30 11:45 | ED Abdominal Pain ---
General Chief Complaint: Abdominal/GI Problems Stated Complaint: PAIN CONTROL Nursing Triage Note: PT [facility] WITH CC OF ABD PAIN, HX OF STOMACH CA Source of Information: Patient Exam Limitations: No Limitations History of Present Illness Date Seen by Provider: Jun 30, 2023 Time Seen by Provider: 11:14 Initial Comments 58-year-old male presents to the ER with complaint of abdominal pain. He has a history of gastric adenocarcinoma and is undergoing chemotherapy, last treatment of chemotherapy was last week. Patient denies having radiation therapy. He states the pain is all over his abdomen, states the pain is similar to normal, just worse. He does report worsening pain in left upper quadrant. He reports left-sided chest pain as well. States that it started this morning at 9:45 AM and is still present. Denies radiation of the pain, denies exertional pain. Denies shortness of air. He reports his body feels hot intermittently, states he gets hot and starts sweating due to pain. States it is related to all of his pain, not just his chest pain. He reports 3 episodes of vomiting last night, denies nausea or vomiting today. Reports that he gets dizzy with walking. Den ies dysuria. Last bowel movement was on Thursday, states it was soft. Reports he has been taking stool softeners. Reports he has been eating less. He also reports upper back pain which has been present for a while. Currently he only takes Carafate. He was seen in the ER on 06/19 for his chronic abdominal pain. At that time he was prescribed Percocet. He states that those helped, but he has ran out. His oncologist, Dr. Poe, prescribed him morphine, states he did not like how they made him feel, so he threw them out. He does not have any other pain medication. He denies any previous abdominal surgeries. Patient does smoke tobacco. Allergies and Home Medications Allergies Coded Allergies: Penicillins (Verified Allergy, Unknown, 05/21/23) Patient Home Medication List Home Medication List Reviewed: Yes Hydrocodone/Acetaminophen (Hydrocodone-Acetamin 5-325 mg) 5 Mg-325 Mg Tablet, 1 EACH PO Q4H PRN for PAIN-MODERATE (5-7) Prescribed by: HINA VILCHIS on 05/22/23 1234 Oxycodone HCl/Acetaminophen (Oxycodon-Acetaminophen 7.5-325) 7.5 Mg-325 Mg Tablet, 1 EACH PO Q6H PRN for PAIN-MODERATE Prescribed by: KOKO LARKIN MD on 06/19/23 1334 Oxycodone HCl/Acetaminophen (Oxycodon-Acetaminophen 7.5-325) 7.5 Mg-325 Mg Tabl et, 1 EACH PO Q6H PRN for PAIN-MODERATE Prescribed by: Geraldine Woodruff on 06/30/23 1355 Pantoprazole Sodium (Protonix) 40 Mg Tablet.dr, 40 MG PO DAILY Prescribed by: Geraldine Woodruff on 06/30/23 1353 Sucralfate (Sucralfate) 1 Gram Tablet, 1 GM PO QID, (Reported) Entered as Reported by: ANALY YANCEY on 02/25/23 1226 Review of Systems Review of Systems Constitutional: see HPI Past Vedugyb-Kfizxv-Jgsagh Hx Patient Social History Tobacco Use?: Yes Tobacco type used: Cigarettes Smoking Status: Current Everyday Smoker Substance use?: No Alcohol Use?: No Immunizations Up To Date Tetanus Booster (TDap): Unknown First/Initial COVID19 Vaccinat: 2020 Second COVID19 Vaccination Oziel: 2020 Third COVID19 Vaccination Date: 2020 Seasonal Allergies Seasonal Allergies: No Past Medical History Surgery/Hospitalization HX: SKIN GRAFT TO L LEG, STOMACH CA Surgeries: Yes (SKIN GRAFT) Respiratory: No Cardiac: Yes Hypertension Neurological: No Sexually Transmitted Disease: No Genitourinary: No Gastrointestinal: Yes (STOMACH CA) Gastroesophageal Reflux, Chronic Constipation Musculoskeletal: Yes Chronic Back Pain Endocrine: No HEENT: No Loss of Vision: Denies Hearing Impairment: Denies Cancer: Yes Stomach Psychosocial: No Integumentary: No Blood Disorders: No Family Medical History No Pertinent Family Hx Physical Exam Vital Signs Vital Signs - First Documented 06/30/23 11:13 Temp 36.6 Pulse 111 Resp 22 B/P (MAP) 118/83 (95) Pulse Ox 99 O2 Delivery Room Air Capillary Refill : Less Than 3 Seconds Height/Weight/BMI Height: 5'6" Weight: 185lbs. oz. 83.466000nm; 22.00 BMI Method:Stated General Appearance: WD/WN, mild distress Neck: supple, normal inspection Respiratory: lungs clear, normal breath sounds, no respiratory distress, no accessory muscle use, other (Left chest tender to palpation) Cardiovascular: regular rate, rhythm Gastrointestinal: normal bowel sounds, soft, guarding (Bilateral upper quadran ts, right lower quadrant), tenderness (All 4 quadrants) Extremities: normal range of motion, normal inspection Back: vertebral tenderness (Thoracic tenderness, tenderness bilateral upper back) Progress/Results/Core Measures Results/Orders Lab Results Laboratory Tests Test 06/30/23 12:13 06/30/23 13:08 Range/Units Prothrombin Time 14.3 12.2-14.7 SEC INR Comment 1.1 0.8-1.4 Activated Partial Thromboplast Time 32 24-35 SEC Magnesium Level 2.1 1.6-2.4 MG/DL Troponin I < 0.028 < 0.028 <0.028 NG/ML Lipase 55 8-78 U/L My Orders Orders - GERALDINE BAH APRN Ekg Tracing (06/30/23 11:24) Magnesium (06/30/23 11:29) Chest 1 View, Ap/Pa Only (06/30/23 11:29) Protime With Inr (06/30/23 11:29) Partial Thromboplastin Time (06/30/23 11:29) Monitor-Rhythm Ecg Trace Only (06/30/23 11:29) Ed Iv/Invasive Line Start (06/30/23 11:29) Lipase (06/30/23 11:29) Troponin I Sobeida (06/30/23 11:29) Morphine Injection (Morphine Injection (06/30/23 11:29) Ct Abdomen/Pelvis W (06/30/23 11:29) Iohexol Injection (Omnipaque 350 Mg/Ml 1 (06/30/23 11:45) Received Contrast (Hold Metformin- Contr (06/30/23 11:45) Ns (Ivpb) 100 Ml (Sodium Chloride 0.9% 1 (06/30/23 11:45) Ns Iv 1000 Ml (Ns Iv 1000 Ml) (06/30/23 11:45) Iohexol Injection (Omnipaque 350 Mg/Ml 1 (06/30/23 12:30) Received Contrast (Hold Metformin- Contr (06/30/23 12:30) Ns (Ivpb) 100 Ml (Sodium Chloride 0.9% 1 (06/30/23 12:30) Pantoprazole Injection (Pantoprazole Inj (06/30/23 13:00) Morphine Injection (Morphine Injection (06/30/23 12:50) Troponin I Boyle (06/30/23 12:51) Medications Given in ED Current Medications Medications Dose Ordered Sig/Miles Route Start Time Stop Time Status Last Admin Dose Admin Iohexol 100 ml ONCE ONCE IV 06/30/23 11:45 06/30/23 11:46 DC 06/30/23 12:18 78 ML Pantoprazole 40 mg ONCE ONCE IV 06/30/23 13:00 06/30/23 13:01 DC 06/30/23 13:17 40 MG Sodium Chloride 100 ml ONCE ONCE IV 06/30/23 11:45 06/30/23 11:46 DC 06/30/23 12:18 80 ML Vital Signs/I&O 06/30/23 06/30/23 06/30/23 06/30/23 11:13 11:45 13:16 14:09 Temp 36.6 36.6 36.6 36.6 Pulse 111 99 Resp 22 18 B/P (MAP) 118/83 (95) 123/65 Pulse Ox 99 99 O2 Delivery Room Air Room Air Blood Pressure Mean: 95 Progress Progress Note : Progress Note Patient seen and evaluated, resting in bed, mild distress. Patient had a CBC and CMP drawn today, these are grossly normal. Based on exam and symptoms, work-up initiated included magnesium, lipase, coags, troponin, EKG, chest x-ray, CT abdomen pelvis. IV fluids and morphine ordered. 1252 Labs and imaging reviewed. Magnesium normal. Lipase normal. Troponin negative. Coags normal. Chest x-ray shows no acute cardiopulmonary process. CT shows wall thickening of the gastric body with surrounding perigastric stranding likely related to patient's known gastric cancer, superimposed gastritis could also be present. No acute obstruction or other inflammatory process. Patient reevaluated. States that his pain is starting to return. Morphine ordered for pain. Protonix also ordered. Will repeat a 3-hour troponin. 1345 repeat troponin negative. Will discharge patient with Protonix and Percocet. Patient instructed to continue taking his Carafate. Instructed to follow-up with Dr. Poe for further refills of Percocet. Also instructed him to continue taking stool softeners. He is stable for discharge at this time. Discharge instructions and return precautions provided. Initial ECG Impression Date: Jun 30, 2023 Initial ECG Impression Time: 11:45 Initial ECG Rate: 102 Initial ECG Rhythm: S.Tach Initial ECG Intervals: Normal Initial ECG Impression: Nonspecific Changes Initial ECG Comparisson: Unchanged Comment No significant Q waves, ST elevation, or T wave inversion. Diagnostic Imaging Diagonstic Imaging: Xray Plain Films/CT/US/NM/MRI: chest Comments [facility], [place] NAME: MIKE ASHRAF [facility] REC#: [id number] PT STATUS: REG ER : 1965 PHYSICIAN: GERALDINE BAH APRN ADMIT DATE: 06/30/23/ER Signed Date of Exam:06/30/23 CHEST 1 VIEW, AP/PA ONLY CHEST 1 VIEW, AP/PA ONLY Indication: Chest pain. Comparison: 05/22/2023 Findings: No focal airspace disease in the visualized lungs. No pleural effusion or pneumothorax. Normal cardiomediastinal silhouette. Stable right IJ Port-A-Cath. Impression: 1. No acute cardiopulmonary process by portable radiography. Dictated by: Dictated on workstation # [id number] Dict: 06/30/23 1232 Trans: 06/30/23 1233 [facility] [id number] Interpreted by: KRISTEN HOROWITZ MD Electronically signed by: KRISTEN HOROWITZ MD 06/30/23 1233 Diagonstic Imaging: CT Plain Films/CT/US/NM/MRI: abdomen, pelvis Comments [facility], [place] NAME: MIKE ASHRAF Felipa [facility] REC#: [id number] PT STATUS: REG ER : 1965 PHYSICIAN: GERALDINE BAH APRN ADMIT DATE: 06/30/23/ER Draft Date of Exam:06/30/23 CT ABDOMEN/PELVIS W CT ABDOMEN/PELVIS W TECHNIQUE: Multiple contiguous axial images were obtained through the abdomen and pelvis after administration of intravenous contrast. All CT scans use one or more of the following dose optimizing techniques: automated exposure control, MA and/or KvP adjustment based on patient size and exam type or iterative reconstruction. INDICATION: Abdominal pain. Gastric cancer. COMPARISON: PET/CT of 04/06/2023. FINDINGS: Lower chest: The lung bases are clear. No pericardial or pleural effusion. Peritoneum: No free intraperitoneal air or fluid. Liver and biliary system: The liver is normal. Gallbladder is normal. No biliary duct dilatation. Spleen and Pancreas: Spleen is normal. The pancreas enhances normally without mass lesion or peripancreatic inflammatory changes. Adrenals: Normal. tract: The kidneys enhance normally without suspicious mass or obstruction. Urinary bladder is distended without wall thickening. Prostate is mildly enlarged. GI tract: Abnormal wall thickening with perigastric stranding at the level of the body is likely related to patient's known gastric cancer. There are few enlarged gastroepiploic lymph nodes. No bowel obstruction. No pericolonic inflammatory changes. Normal appendix. Vasculature and Lymph nodes: Normal caliber aorta. There are a few mildly enlarged gastroepiploic and gastric ligament lymph nodes. No other lymphadenopathy within the abdomen or pelvis. Musculoskeletal: No concerning osseous lesion. IMPRESSION: 1. Wall thickening of the gastric body with surrounding perigastric stranding may be related to patient's known gastric cancer. A superimposed gastritis could be present in the appropriate setting. 2. Otherwise, no acute obstructive or inflammatory process. Dictated on workstation # [id number] Dict: 06/30/23 1238 Trans: 06/30/23 1245 [id number] Interpreted by: KRISTEN HOROWITZ MD Electronically signed by: Departure Impression Primary Impression: Abdominal pain Additional Impression: Chest pain Disposition: 01 HOME, SELF-CARE Condition: Stable Departure-Patient Inst. Decision time for Depature: 13:47 Referrals: RICHY SÁNCHEZ DO (PCP/Family) Primary Care Physician Patient Instructions: Severe Abdominal Pain, Adult (DC) Add. Discharge Instructions: Continue taking your Carafate and stool softeners. Take Protonix once a day. Take Percocet as needed for pain. It can cause constipation. It can also make you sleepy. Follow-up with your oncologist. Dr. Poe will need to refill the Percocets and possibly the Protonix. Return for any new, concerning, or worsening symptoms. All discharge instructions reviewed with patient and/or family. Voiced understanding. Scripts Oxycodone HCl/Acetaminophen (Oxycodon-Acetaminophen 7.5-325) 7.5 Mg-325 Mg Tablet 1 EACH PO Q6H PRN for PAIN-MODERATE MDD 4, #16 TAB 0 Refills Prov: GERALDINE BAH APRN 06/30/23 Pantoprazole Sodium (Protonix) 40 Mg Tablet.dr 40 MG PO DAILY for 30 Days, #30 TAB 0 Refills Prov: GERALDINE BAH APRN 06/30/23 Copy Copies To 1: GODWIN POE MD, BRITTANY R APRN Jun 30, 2023 11:45
[2023-06-30 12:33] LABS: INR 1.1 (0.8-1.4); PROTHROMBIN TIME PATIENT 14.3 SEC (12.2-14.7)
--- NOTE | 2023-06-30 12:34 | Diagnostic Imaging Report ---
CHEST 1 VIEW, AP/PA ONLY Indication: Chest pain. Comparison: 05/22/2023 Findings: No focal airspace disease in the visualized lungs. No pleural effusion or pneumothorax. Normal cardiomediastinal silhouette. Stable right IJ Port-A-Cath. Impression: 1. No acute cardiopulmonary process by portable radiography. Dictated by: Dictated on workstation # [id number]
[2023-06-30 12:38] LABS: MAGNESIUM 2.1 MG/DL (1.6-2.4)
[2023-06-30 12:39] LABS: LIPASE 55 U/L (8-78)
--- NOTE | 2023-06-30 12:45 | Diagnostic Imaging Report ---
CT ABDOMEN/PELVIS W TECHNIQUE: Multiple contiguous axial images were obtained through the abdomen and pelvis after administration of intravenous contrast. All CT scans use one or more of the following dose optimizing techniques: automated exposure control, MA and/or KvP adjustment based on patient size and exam type or iterative reconstruction. INDICATION: Abdominal pain. Gastric cancer. COMPARISON: PET/CT of 04/06/2023. FINDINGS: Lower chest: The lung bases are clear. No pericardial or pleural effusion. Peritoneum: No free intraperitoneal air or fluid. Liver and biliary system: The liver is normal. Gallbladder is normal. No biliary duct dilatation. Spleen and Pancreas: Spleen is normal. The pancreas enhances normally without mass lesion or peripancreatic inflammatory changes. Adrenals: Normal. tract: The kidneys enhance normally without suspicious mass or obstruction. Urinary bladder is distended without wall thickening. Prostate is mildly enlarged. GI tract: Abnormal wall thickening with perigastric stranding at the level of the body is likely related to patient's known gastric cancer. There are few enlarged gastroepiploic lymph nodes. No bowel obstruction. No pericolonic inflammatory changes. Normal appendix. Vasculature and Lymph nodes: Normal caliber aorta. There are a few mildly enlarged gastroepiploic and gastric ligament lymph nodes. No other lymphadenopathy within the abdomen or pelvis. Musculoskeletal: No concerning osseous lesion. IMPRESSION: 1. Wall thickening of the gastric body with surrounding perigastric stranding may be related to patient's known gastric cancer. A superimposed gastritis could be present in the appropriate setting. 2. Otherwise, no acute obstructive or inflammatory process. Dictated by: Dictated on workstation # [id number]
[2023-06-30] MEDS ORDERED: PANTOPRAZOLE INJECTION 40 MG VIAL IV ONE (13:00)
[2023-06-30] MEDS ORDERED: PANT40TA2 PO (13:53)
[2023-06-30] MEDS ORDERED: OXYC1TAB15 PO (13:53)
[2023-06-30 14:09] VITALS: BP 123/65
== END 2023-06-30 14:04 | disposition home or self-care (01) ==
LOC: EDUNIT# 11:02 → ER 11:04
DX: R10.12 Left upper quadrant pain (principal); R10.11 Right upper quadrant pain; R10.31 Right lower quadrant pain; R10.32 Left lower quadrant pain; R07.89 Other chest pain; C16.9 Malignant neoplasm of stomach, unspecified; F17.210 Nicotine dependence, cigarettes, uncomplicated
CPT/HCPCS: 36415; 71045; 74177; 83690; 83735; 84484; 85610; 85730; 93005; 93041; 96361; 96374; 96375; 96376

== ENCOUNTER 2023-07-08 14:21 | Outpatient (RCR) | payer MEDICAID ==
[2023-07-07 09:39] VITALS: BP 124/83
[~2023-07-08 14:21] MED LIST changes: +D5W 500 ML IV SOLUTION 500 ML IV SCH; +D5W IV SCH; +DEXAMETHASONE SODIUM PHOSPHATE IV SCH; +DOCETAXEL IV SCH; +FLUOROURACIL IV SCH; +HEParin (CENTRAL IV FLUSH) 500 UNIT/5 ML SYR IV PRN; +LEUCOVORIN CALCIUM IV SCH; +NORMAL SALINE IV SCH; +NS IV SCH; +OXALIPLATIN IV SCH; +PALONOSETRON HCL IV SCH
== END 2023-07-14 11:31 | disposition home or self-care (01) ==
LOC: ONC 14:21
PROVIDERS: ATTEND Internal Medicine Hematology & Oncology
DX: Z51.11 Encounter for antineoplastic chemotherapy (principal); Z45.2 Encounter for adjustment and management of vascular access device; C16.9 Malignant neoplasm of stomach, unspecified
CPT/HCPCS: 36591; 96368; 96375; 96413; 96415; 96417

== ENCOUNTER → 2023-07-14 | Outpatient (RCR) | payer MEDICAID ==
[2023-07-07 09:39] VITALS: BP 124/83
[~2023-07-14] MED LIST changes: -D5W 500 ML IV SOLUTION 500 ML IV SCH; -D5W IV SCH; -DEXAMETHASONE SODIUM PHOSPHATE IV SCH; -DOCETAXEL IV SCH; -FLUOROURACIL IV SCH; -HEParin (CENTRAL IV FLUSH) 500 UNIT/5 ML SYR IV PRN; -LEUCOVORIN CALCIUM IV SCH; -NORMAL SALINE IV SCH; -NS IV SCH; -OXALIPLATIN IV SCH; -PALONOSETRON HCL IV SCH
== END | disposition home or self-care (01) ==
LOC: ONC 11:33
PROVIDERS: ATTEND Internal Medicine Hematology & Oncology
DX: Z45.2 Encounter for adjustment and management of vascular access device (principal); C16.9 Malignant neoplasm of stomach, unspecified

== ENCOUNTER 2023-08-05 09:00 | Outpatient (RCR) | payer MEDICAID ==
[2023-07-21 09:00] VITALS: BP 125/77
[2023-07-21 09:15] LABS: BASOPHILS # (AUTO) 0.1 10^3/uL (0.0-0.1); BASOPHILS % (AUTO) 1 % (0-10); EOSINOPHILS % (AUTO) 0 % (0-10); HEMATOCRIT 33 % (40-54); HEMOGLOBIN 10.5 g/dL (13.3-17.7); LYMPHOCYTES % (AUTO) 57 % (12-44); MEAN CORPUSCULAR HEMOGLOBIN 26 pg (25-34); MEAN CORPUSCULAR HGB CONC 32 g/dL (32-36); MEAN CORPUSCULAR VOLUME 82 fL (80-99); MONOCYTES # (AUTO) 1.4 10^3/uL (0.0-1.0); MONOCYTES % (AUTO) 20 % (0-12); NEUTROPHILS # (AUTO) 1.5 10^3/uL (1.8-7.8); NEUTROPHILS % (AUTO) 22 % (42-75); PLATELET COUNT 195 10^3/uL (130-400); WHITE BLOOD COUNT 6.9 10^3/uL (4.3-11.0)
[2023-07-21 09:34] LABS: ALBUMIN 3.4 GM/DL (3.2-4.5); BILIRUBIN,TOTAL 0.4 MG/DL (0.1-1.0); CALCIUM 8.8 MG/DL (8.5-10.1); CREATININE SERUM 0.71 MG/DL (0.60-1.30); TOTAL PROTEIN 6.7 GM/DL (6.4-8.2)
[~2023-08-05] VITALS: Ht 167.6 cm; Wt 67.2 kg
[~2023-08-05 09:00] MED LIST changes: +ACETAMINOPHEN 325 MG TABLET PO PRN; +D5W 500 ML IV SOLUTION 500 ML IV SCH; +D5W IV SCH; +DEXAMETHASONE SODIUM PHOSPHATE IV SCH; +DOCETAXEL IV SCH; +FLUOROURACIL IV SCH; +HEParin (CENTRAL IV FLUSH) 500 UNIT/5 ML SYR IV PRN; +LEUCOVORIN CALCIUM IV SCH; +NORMAL SALINE IV SCH; +NS IV 1000 ML (CANCER CTR) IV SCH; +NS IV SCH; +OXALIPLATIN IV SCH; +PALONOSETRON HCL 0.25 MG, dexAMETHasone sodium phosphate 10 MG in NS (IVPB) 50 ML 50 ML IV SCH; +PALONOSETRON HCL IV SCH; +RAMUCIRUMAB IV SCH; +diphenhydrAMINE INJ 50 MG/ML VIAL IV PRN
[2023-08-05 09:29] LABS: BASOPHILS # (AUTO) 0.1 10^3/uL (0.0-0.1); BASOPHILS % (AUTO) 2 % (0-10); EOSINOPHILS % (AUTO) 0 % (0-10); HEMATOCRIT 39 % (40-54); HEMOGLOBIN 12.2 g/dL (13.3-17.7); LYMPHOCYTES # (AUTO) 4.2 10^3/uL (1.0-4.0); LYMPHOCYTES % (AUTO) 68 % (12-44); MEAN CORPUSCULAR HEMOGLOBIN 26 pg (25-34); MEAN CORPUSCULAR HGB CONC 32 g/dL (32-36); MEAN CORPUSCULAR VOLUME 83 fL (80-99); MEAN PLATELET VOLUME 9.4 fL (9.0-12.2); MONOCYTES # (AUTO) 1.5 10^3/uL (0.0-1.0); MONOCYTES % (AUTO) 24 % (0-12); NEUTROPHILS # (AUTO) 0.3 10^3/uL (1.8-7.8); NEUTROPHILS % (AUTO) 5 % (42-75); PLATELET COUNT 246 10^3/uL (130-400); WHITE BLOOD COUNT 6.2 10^3/uL (4.3-11.0)
[2023-08-05 09:44] LABS: ALBUMIN 3.4 GM/DL (3.2-4.5); BILIRUBIN,TOTAL 0.5 MG/DL (0.1-1.0); CALCIUM 8.7 MG/DL (8.5-10.1); CREATININE SERUM 0.74 MG/DL (0.60-1.30); POTASSIUM 3.3 MMOL/L (3.6-5.0); TOTAL PROTEIN 6.9 GM/DL (6.4-8.2)
== END 2023-08-13 | disposition home or self-care (01) ==
LOC: ONC 09:00
PROVIDERS: ATTEND Internal Medicine Hematology & Oncology
DX: Z51.11 Encounter for antineoplastic chemotherapy (principal); Z45.2 Encounter for adjustment and management of vascular access device; C16.9 Malignant neoplasm of stomach, unspecified
CPT/HCPCS: 36415; 36591; 80053; 85025; 96367; 96368; 96375; 96413; 96415; 99214